=== PATIENT | female | born 1965 | race Caucasian/White ===

== ENCOUNTER 2021-11-18 05:29 | Observation (INO) | payer OTHER, SELFPAY ==
[2021-11-18] VITALS (15 sets, daily range): BP systolic 126–203; BP diastolic 80–109; PULSE 63–90; RESP 16–20; TEMP 36.1–37.3; O2SAT 95–100; BMI 25.7; BMI 26.3
[2021-11-18] MEDS: KETOROLAC 15 MG/ML inj IVP (05:52)
[2021-11-18 05:58] LABS: Basophils Absolute Auto 0.03 K/uL (0.00-0.30); Basophils Percent Auto 0.4 % (0.0-3.0); Eosinophils Absolute Auto 0.12 K/uL (0.00-0.50); Eosinophils Percent Auto 1.5 % (0.0-7.0); Hematocrit 42.3 % (33.0-51.0); Hemoglobin* 14.3 gm/dL (12.0-16.0); Immature Granulocytes Abs Auto 0.02 K/uL (0.00-0.30); Lactate* 2.7 mmol/L (0.5-1.9); Lymphocytes Absolute Auto 2.42 K/uL (0.90-2.90); Lymphocytes Percent Auto 30.1 % (20-44); Mean Corpuscular HGB Conc 34 gm/dL (32-36); Mean Corpuscular Hemoglobin 30 pg (26-34); Mean Corpuscular Volume 88 fL (80-100); Monocytes Percent Auto 6.7 % (0.0-11.0); Neutrophils Absolute Auto 4.91 K/uL (1.7-7.0); Neutrophils Percent Auto 61.1 % (42.0-72.0); Platelet Count* 275 K/uL (140-440); RDW Coefficient of Variation % 12.7 % (11.5-15.5); Red Blood Count 4.82 m/uL (4.00-5.20); White Blood Count* 8.04 K/uL (4.50-11.00)
[2021-11-18 06:00] LABS: Appearance Urine Clear (Clear); Bilirubin Urine Negative (Negative); Blood Urine Negative (Negative); Color Urine Yellow (Yellow); Glucose Urine Negative (Negative); Ketones Urine Negative (Negative); Leukocyte Esterase Urine Trace (Negative); Nitrite Urine Negative (Negative); Protein Urine Negative (Negative); Specific Gravity Urine 1.025 (1.000-1.030); Urobilinogen Urine 0.2 (0.2-1.0); pH Urine 7.5 (5.0-8.5)
[2021-11-18 06:01] LABS: Slide Review Reflex No
[2021-11-18 06:10] LABS: RBC Urine 0-2 (0-2); WBC Urine 0-2 (0-5)
[2021-11-18 06:12] LABS: Albumin* 4.4 g/dL (3.3-5.0); Chloride* 107 mmol/L (96-114)
--- NOTE | 2021-11-18 06:12 | ED_ITS ---
HPI - General Adult General Date Seen: 11/18/21 Chief complaint: Abdominal Pain Stated complaint: Stomach pain,possible gall stones Source: patient History of Present Illness HPI narrative: Patient is a 56-year-old woman who was awakened at 4:00 a.m. with severe right upper quadrant pain. It does not radiate. It is not associated with nausea or vomiting. She had pain like this back in February at which time she was evaluated regions. She had a right upper quadrant ultrasound which showed sludge or gallstones. She has not followed up since then. She had a noon rings for dinner last night. She has a history of kidney stones, feels this is different. She does not have flank pain or urinary symptoms. No diarrhea, black or bloody stools. Did not take medications at home. Related Data Previous Rx's Medication Instructions Recorded atorvastatin 20 mg tablet 20 mg PO .hs #90 tabs 10/08/21 escitalopram oxalate 20 mg tablet 20 mg PO DAILY #90 tabs 10/08/21 dextroamphetamine-amphetamine ER 40 mg PO QDAY #60 caps 10/26/21 20 mg 24hr capsule,extend release Allergies Allergy/AdvReac Type Severity Reaction Status Date / Time Penicillins Allergy Unknown Verified 10/30/21 10:43 Review of Systems Status of ROS: Reports: 10 or more systems reviewed and unremarkable except as noted in History and below [facility] Medical History Encounter for annual physical exam Family History Father Diabetes Heart disease Other Breast cancer Social History Smoking Status: Never smoker Do you use any of these nicotine containing products: None How often do you have a drink containing alcohol: never AUDIT-C Alcohol total score: 0 Non-prescribed substance use: denies use Exam Narrative: Exam Narrative: Vital signs as noted above. In general, an alert, nontoxic woman. Looks uncomfortable. Head: Normocephalic, atraumatic. Eyes: Pupils are equal reactive. Extraocular movements are full. Conjunctivae are normal. ENT: Mucous membranes are moist. Throat is normal. Neck: Supple without lymphadenopathy. Heart: Regular rate and rhythm. No murmur or rub. Lungs: Clear bilaterally. No increased work of breathing, crackles or wheezes. Abdomen: Nondistended. Right upper quadrant tenderness, positive Avendaño sign. Abdomen otherwise nontender. Extremities: Well perfused. No edema. No calf tenderness. Pulses intact. Neurologic: Patient is alert and oriented to person and place. Speech is fluent. Face is symmetric. Moves all extremities equally. Affect: Normal. Skin: Warm and dry. Well perfused. Const: Vital Signs, click to edit/add: Vital Signs - 24 hr 11/18/21 05:40 11/18/21 06:47 11/18/21 07:40 Temperature 96.9 F L 98.1 F 97.6 F Pulse Rate [Right Pulse Oximeter] 82 83 77 Respiratory Rate 20 16 16 Blood Pressure [Ri ght Upper Arm] 203/109 H 172/100 H 151/90 H Pulse Oximetry 100 99 96 Oxygen Delivery Me thod Room Air Room Air Room Air 11/18/21 08:00 11/18/21 08:30 11/18/21 09:00 Temperature Pulse Rate [Right Pulse Oximeter] 63 69 69 Respiratory Rate 16 16 16 Blood Pressure [Ri ght Upper Arm] 166/93 H 157/99 H 158/80 H Pulse Oximetry 96 96 98 Oxygen Delivery Me thod Room Air Room Air Room Air Course Course Hospital Course: An IV was placed. Will give Toradol and normal saline. Records from regions were reviewed. She had a rider quadrant ultrasound which did not show evidence of cholecystitis but she did have sludge and possibly small gallstones. Labs are unremarkable. Will check a CBC, metabolic panel, LFTs and lipase, lactate. UA. Depending on those, and how she is doing pain yanes, will determine whether we need to repeat an ultrasound. Do a bedside ultrasound here. Suspect biliary colic versus cholecystitis. Less likely pyelonephritis, kidney stone, appendicitis, bowel obstruction, diverticulitis, colitis. Labs are overall reassuring, white blood cell count is normal at 8.0. Hemoglobin is normal. Metabolic panel shows normal electrolytes, BUN is 12, creatinine is 0.7. Lactate is elevated at 2.7. LFTs are entirely normal. CRP is less than 0.5. Lipase is normal at 146. Urinalysis is entirely negative aside from trace leukocyte esterase, but 0-2 red cells and 0-2 white blood cells. I did look with the bedside ultrasound, I do think she has a couple of small gallstones, but I do not see evidence of significant wall thickening or pericholecystic fluid. At this time, she does not have any abdominal pain and not have any right upper quadrant tenderness nor a negative Avendaño sign. These symptoms seem to have entirely resolved, consistent most likely with biliary colic. However, her has noted that while here, her short-term memory is essentially absent. She has not been able to remember anything that this happened while here, and has been repeatedly asking him the same questions. She does not remember meeting me earlier, does not remember our conversation, does not remember what she had for dinner last night, does not remember that her dad is in the hospital. She does remember longer-term things like is able to tell me her date, she is oriented to where she is. Patient had an MRI of the brain which is read by Radiology as negative for acute findings. She does have artifact from dental work. Repeat evaluation shows she continues to have inability to form short term memory. Neurologic exam is otherwise nonfocal. I did discuss her case with Dr. Lebron, [facility]. He agrees with the diagnosis of transient global amnesia. I gave her an aspirin here. I think this will clear with time but I have recommended admission for observation meantime. Regarding her abdominal pain, I think this represented biliary colic. Have recommended outpatient surgery follow-up at her earliest convenience. Usual recommendations, avoid fatty food, return for severe persistent pain, fevers, etc.. Vital Signs Vital signs: Initial Vital Signs Temperature 96.9 F L 11/18/21 05:40 Temperature Source Temporal Artery Scan 11/18/21 05:40 Pulse Rate 82 11/18/21 05:40 Pulse Rhythm 11/18/21 05:40 Respiratory Rate 20 11/18/21 05:40 Blood Pressure 203/109 H 11/18/21 05:40 Blood Pressure Mean 140 11/18/21 05:40 Blood Pressure Position Supine 11/18/21 05:40 Pulse Oximetry 100 11/18/21 05:40 Oxygen Delivery Method 11/18/21 05:40 Vital Signs Temperature 96.9 F L 11/18/21 05:40 Pulse Rate 82 11/18/21 05:40 Respiratory Rate 20 11/18/21 05:40 Blood Pressure 203/109 H 11/18/21 05:40 Pulse Oximetry 100 11/18/21 05:40 Oxygen Delivery Method 11/18/21 05:40 Temperature 97.6 F 11/18/21 07:40 Pulse Rate 69 11/18/21 09:00 Respiratory Rate 16 11/18/21 09:00 Blood Pressure 158/80 H 11/18/21 09:00 Pulse Oximetry 98 11/18/21 09:00 Oxygen Delivery Method 11/18/21 09:00 Medical Decision Making Lab Data Labs: Lab Results 11/18/21 11/18/21 11/18/21 Range/Units 05:40 05:40 05:40 WBC 8.04 (4.50-11.00) K/uL RBC 4.82 (4.00-5.20) m/uL Hgb 14.3 (12.0-16.0) gm/dL Hct 42.3 (33.0-51.0) % MCV 88 (80-100) fL MCH 30 (26-34) pg MCHC 34 (32-36) gm/dL RDW Coeff of Giancarlo 12.7 (11.5-15.5) % Plt Count 275 (140-440) K/uL Neut % (Auto) 61.1 (42.0-72.0) % Lymph % (Auto) 30.1 (20-44) % Gibson % (Auto) 6.7 (0.0-11.0) % Eos % (Auto) 1.5 (0.0-7.0) % Baso % (Auto) 0.4 (0.0-3.0) % Neut # (Auto) 4.91 (1.7-7.0) K/uL Lymph # (Auto) 2.42 (0.90-2.90) K/uL Gibson # (Auto) 0.50 (0.00-0.90) K/UL Eos # (Auto) 0.12 (0.00-0.50) K/uL Baso # (Auto) 0.03 (0.00-0.30) K/uL Abs Immat Gran (auto) 0.02 (0.00-0.30) K/uL Sodium 141 (135-149) mmol/L Potassium 3.8 (3.6-5.1) mmol/L Chloride 107 (96-114) mmol/L Carbon Dioxide 23 (20-32) mmol/L BUN 12 (7-30) mg/dL Creatinine 0.7 (0.5-1.5) mg/dL Estimated Creat Clear 79.34 Estimated GFR 103 ml/min Glucose 133 H (60-115) mg/dL Lactate (0.5-1.9) mmol/L Calcium 9.5 (8.4-10.6) mg/dL Total Bilirubin 0.3 (0.1-1.5) mg/dL Direct Bilirubin 0.3 (0.0-0.5) mg/dL AST 26 (12-35) U/L ALT 26 (4-35) U/L Alkaline Phosphatase 117 (40-150) U/L C-Reactive Protein < 0.5 L (0.5-1.0) mg/dL Total Protein 7.6 (6.0-8.3) g/dL Albumin 4.4 (3.3-5.0) g/dL Lipase 146 (23-300) U/L Urine Color Yellow (Yellow) Urine Appearance Clear (Clear) Urine pH 7.5 (5.0-8.5) Ur Specific [place] 1.025 (1.000-1.030) Urine Protein Negative (Negative) Urine Glucose (UA) Negative (Negative) Urine Ketones Negative (Negative) Urine Blood Negative (Negative) Urine Nitrite Negative (Negative) Urine Bilirubin Negative (Negative) Urine Urobilinogen 0.2 (0.2-1.0) Ur Leukocyte Esterase Trace A (Negative) Urine RBC 0-2 (0-2) Urine WBC 0-2 (0-5) Ur Squamous Epith Cells None (None-Few) Urine Bacteria None (None) SARS-CoV-2 Ag (Rapid) 11/18/21 11/18/21 Range/Units 05:40 08:46 WBC (4.50-11.00) K/uL RBC (4.00-5.20) m/uL Hgb (12.0-16.0) gm/dL Hct (33.0-51.0) % MCV (80-100) fL MCH (26-34) pg MCHC (32-36) gm/dL RDW Coeff of Giancarlo (11.5-15.5) % Plt Count (140-440) K/uL Neut % (Auto) (42.0-72.0) % Lymph % (Auto) (20-44) % Gibson % (Auto) (0.0-11.0) % Eos % (Auto) (0.0-7.0) % Baso % (Auto) (0.0-3.0) % Neut # (Auto) (1.7-7.0) K/uL Lymph # (Auto) (0.90-2.90) K/uL Gibson # (Auto) (0.00-0.90) K/UL Eos # (Auto) (0.00-0.50) K/uL Baso # (Auto) (0.00-0.30) K/uL Abs Immat Gran (auto) (0.00-0.30) K/uL Sodium (135-149) mmol/L Potassium (3.6-5.1) mmol/L Chloride (96-114) mmol/L Carbon Dioxide (20-32) mmol/L BUN (7-30) mg/dL Creatinine (0.5-1.5) mg/dL Estimated Creat Clear Estimated GFR ml/min Glucose (60-115) mg/dL Lactate 2.7 H (0.5-1.9) mmol/L Calcium (8.4-10.6) mg/dL Total Bilirubin (0.1-1.5) mg/dL Direct Bilirubin (0.0-0.5) mg/dL AST (12-35) U/L ALT (4-35) U/L Alkaline Phosphatase (40-150) U/L C-Reactive Protein (0.5-1.0) mg/dL Total Protein (6.0-8.3) g/dL Albumin (3.3-5.0) g/dL Lipase (23-300) U/L Urine Color (Yellow) Urine Appearance (Clear) Urine pH (5.0-8.5) Ur Specific [place] (1.000-1.030) Urine Protein (Negative) Urine Glucose (UA) (Negative) Urine Ketones (Negative) Urine Blood (Negative) Urine Nitrite (Negative) Urine Bilirubin (Negative) Urine Urobilinogen (0.2-1.0) Ur Leukocyte Esterase (Negative) Urine RBC (0-2) Urine WBC (0-5) Ur Squamous Epith Cells (None-Few) Urine Bacteria (None) SARS-CoV-2 Ag (Rapid) Cancelled Discharge Plan Discharge Clinical Impression: TGA (transient global amnesia), Biliary colic Patient Disposition: Admitted As Inpatient Condition: Stable
[2021-11-18 06:13] LABS: Potassium* 3.8 mmol/L (3.6-5.1); Sodium* 141 mmol/L (135-149)
[2021-11-18 06:15] LABS: Creatinine* 0.7 mg/dL (0.5-1.5); Est. Creatinine Clearance* 79.34; Estimated Glomerular Filt Rate 103 ml/min
[2021-11-18 06:16] LABS: Alanine Aminotransferase* 26 U/L (4-35); Alkaline Phosphatase* 117 U/L (40-150); Aspartate Amino Transferase* 26 U/L (12-35); Bilirubin Direct* 0.3 mg/dL (0.0-0.5); Bilirubin Total* 0.3 mg/dL (0.1-1.5); Blood Urea Nitrogen* 12 mg/dL (7-30); Calcium* 9.5 mg/dL (8.4-10.6); Carbon Dioxide* 23 mmol/L (20-32); Glucose* 133 mg/dL (60-115); Lipase* 146 U/L (23-300); Total Protein* 7.6 g/dL (6.0-8.3)
[2021-11-18 06:19] LABS: C Reactive Protein* < 0.5 mg/dL (0.5-1.0)
--- NOTE | 2021-11-18 06:48 | CRLHL7_ITS ---
For Patients: As a result of the Century Cures Act, medical imaging exams and procedure reports are released immediately into your electronic medical record. You may view this report before your referring provider. If you have questions, please contact your health care provider. INDICATION: Confusion. TECHNIQUE: Multiplanar multisequence noncontrast MR images acquired. COMPARISON: MRI brain 02/10/2017. FINDINGS: Susceptibility artifact secondary to dental hardware limits evaluation, particularly the diffusion weighted sequence. The ventricles and sulci are within normal limits for patient age. No mass effect or midline shift. No parenchymal signal abnormalities within exam limitations. No areas of diffusion restriction identified to suggest acute infarction, though evaluation is limited, particularly of the anterior cerebral hemispheres and posterior fossa. No evidence for recent intracranial hemorrhage or pathologic extra-axial fluid collection. Left temporomandibular joint degenerative changes. The major arterial flow voids of the skullbase are grossly preserved. The globes are symmetric. The paranasal sinuses are well aerated, though partially obscured secondary to artifact. No significant mastoid effusion. IMPRESSION: Susceptibility artifact secondary to dental hardware limits evaluation. No intracranial abnormality is identified within exam limitations. Dictated by Gregor Hutton MD @ 11/18/2021 8:10:36 AM (Electronically Signed)
--- NOTE | 2021-11-18 08:47 | ED.NURSE ---
Heads up to house player
[2021-11-18] MEDS: ASPIRIN 81 MG TAB.CHEW 324 MG PO (09:04)
--- NOTE | 2021-11-18 09:29 | W.PC.EDHO ---
Primary Language: Preferred Language: Orientation Status: [X] Alert & Oriented [] Slight Confusion [] Known Dx Dementia Transfers By: Independant [] Assist of 1 [] Assist of 2 [] Lift Active Medications Discontinued Medications Generic Name Dose Route Start Last Admin Trade Name Dorina PRN Reason Stop Dose Admin Aspirin 324 mg 11/18/21 08:31 11/18/21 09:04 Aspirin 81 Mg Tab.Chew PO 11/18/21 08:32 324 mg ONCE ONE Administration Ketorolac Tromethamine 15 mg 11/18/21 05:48 11/18/21 05:52 Ketorolac 15 Mg/Ml Inj IVP 11/18/21 05:49 15 mg ONCE ONE Administration Description of Symptoms ED Triage Present Problem 0430 woke up with severe 10/10 RUQ into Rback pain Description , hx gall or kidney stones, pt cant remember which . denies vomiting, does have nausea. pt presents crying in bed. ED Triage Date of Onset of 11/18/21 Symptoms Female History Patient No Pain Pain Description [Right Upper Sharp Abdomen] Pain Intensity [Right Upper 10 Abdomen] Pain Intensity [Right Upper 10 Abdomen] Pain Intensity 1 Pain Intensity 1 Pain Intensity 5 Pain Intensity 10 Pain Scale Used [Right Upper Numeric (1 - 10) Abdomen] Pain Scale Used [Right Upper Numeric (1 - 10) Abdomen] Pain Scale Used Numeric (1 - 10) Pain Scale Used Numeric (1 - 10) Pain Scale Used Numeric (1 - 10) Pain Scale Used Numeric (1 - 10) Pain Scale Used Numeric (1 - 10) IV Insertion/Site Date of IV Line Insertion [ 11/18/21 Left Antecubital] Oxygen Administration Pulse Oximetry 98 Pulse Oximetry 96 Pulse Oximetry 96 Pulse Oximetry 96 Pulse Oximetry 99 Pulse Oximetry 100 Oxygen Delivery Method Room Air Oxygen Delivery Method Room Air Oxygen Delivery Method Room Air Oxygen Delivery Method Room Air Oxygen Delivery Method Room Air Oxygen Delivery Method Room Air
[2021-11-18 09:50] LABS: SARS PCR* Negative SARS-CoV-2 (Negative)
--- NOTE | 2021-11-18 10:21 | ED.NURSE ---
Report to LOUANN Barboza on MS.
--- NOTE | 2021-11-18 11:20 | PM.IMHP1 ---
Hospitalist- H&P: ANTONIETA History of Present Illness Time Seen by Provider: 11:15 Date Seen: 11/18/21 Chief complaint: Stomach pain,possible gall stones Narrative: Kylie Chatman is a 56 year old female who presented to the emergency room today with right upper quadrant pain and then suddenly developed anterograde amnesia. Due to amnesia, her gives me history. While I was talking with him, Kylie's mother came in the room and also helped to give history. Kylie's father is currently in the hospital with COVID, so her mother was here anyway. Kylie woke up at 4:30 a.m. with excruciating abdominal pain. Her tells me that he was rocking and very uncomfortable. After a while the pain went to her back. She did not have any nausea or vomiting with that. When she got to the emergency department the pain improved and is now gone altogether. Of note she had gone out with a friend to eat yesterday and had onion rings. This is more fatty of a meal then she has had in a while. She had a similar episode of abdominal pain on March 09. It resolved and she did not know that she needed follow-up with anyone. When she got to the emergency department she started asking questions like, ?why am I here,? ?what is going on?She asked these questions again and again despite receiving answers to these questions. She never lost her identity and is able to tell me who she is and what she does for work as well as other details of her life. She has no idea what happened today and also has lost memories back for about a week. She has never had any memory loss before. Her and mother tell me that she has been under quite a bit of stress with her dad in the hospital and has been talking with her mom on the phone about 3 times a day. On Tuesday she went for a very long walk with her dog. It was a very hot day that day. She came back complaining that her legs were sore and this went on from Tuesday into Tuesday. He also felt very fatigued after that walk. On Tuesday she was out in the [employer] when her came back and parked the truck near to where she was weeding. He went in the house and she later came in and was surprised to see him. Even though she was right there when he came back, and it should of been obvious to her that he was back, she came in wondering why his truck was there and was surprised to see him. Her thought this was unusual behavior for her. I went back to see the patient this afternoon around 4:00 p.m. and she started to have improvement in her memory. She was no longer frequently asking questions about about what was going on and why she was here. She was slightly more oriented and even starting to remember some of the events over the past week. Review of Systems Status of ROS: Reports: 10 or more systems reviewed and unremarkable except as noted in History and below [facility] Medical History (Updated 11/18/21 @ 17:37 by Christine Eubanks MD) Anxiety and depression Basal cell carcinoma of skin Difficulty sleeping Encounter for annual physical exam Excessive daytime sleepiness Hyperlipidemia Hypersomnolence Insomnia Iron deficiency Occipital neuralgia Otosclerosis Rash (11/2020) Vitamin D deficiency Family History (Updated 11/18/21 @ 11:33 by Christine Eubanks MD) Father Diabetes Heart disease Parkinsonism Mother Breast cancer Coronary artery disease Other High blood pressure Social History (Updated 11/18/21 @ 11:38 by Christine Eubanks MD) Narrative: No tob use. EtOH. One can limarita every night. No recreational drugs. Full code. 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 Highest level of school completed/degree received: Associate degree: occupational, technical, vocational program Smoking Status: Never smoker Do you use any of these nicotine containing products: None Second hand tobacco smoke exposure: Yes How often do you have a drink containing alcohol: 4 or more times a week Alcohol type details: 1 limarita a night How many standard drinks containing alcohol do you have on a typical day: 1 or 2 How often do you have six or more drinks on one occasion: Less than monthly AUDIT-C Alcohol total score: 5 Non-prescribed substance use: denies use Caffeine: Yes (1 pop a day) service: No Meds Home Medications and Allergies Home Medications Medication Instructions Recorded Confirmed Type atorvastatin 20 mg tablet 20 mg PO HS 11/18/21 11/18/21 History ibuprofen 200 mg capsule 400 mg PO Q4H PRN 11/18/21 11/18/21 History Allergies Allergy/AdvReac Type Severity Reaction Status Date / Time Penicillins Allergy Unknown Verified 11/18/21 10:59 Exam Narrative: Exam Narrative: General: No acute distress. Awake, alert, repeatedly asking questions about why she is here. Preserved identity. She is able to say her full name and birthday. HEENT: Normocephalic atraumatic, pupils equally round and reactive to light and accommodation. Oropharynx clear. Mucous membranes are moist. No cervical lymphadenopathy, thyromegaly or carotid bruits. No JVD. Cardiovascular: Regular rate and rhythm. No murmurs, gallops, or rubs. Chest: No increased work of breathing. Clear to auscultation bilaterally. No crackles or wheezes. Abdomen: Bowel sounds present. Soft, nondistended, nontender. No hepatosplenomegaly or masses. Extremities: No edema, no cyanosis or clubbing. Skin: No jaundice, no pallor, no rashes. Neuro: Other than anterograde amnesia, are no focal deficits. Romberg is negative. Gait is within normal limits. Cranial nerves 2-12 are intact. Extraocular movements are full. No nystagmus. No facial asymmetry. Tongue is midline. Peripheral vision and vision are grossly intact. Strength is 5/5 in all 4 extremities. Light touch sensation is intact in face body and extremities. Coordination is intact in upper and lower extremities. Const: Vital Signs, click to edit/add: Vital Signs - 24 hr 11/18/21 05:40 11/18/21 06:47 11/18/21 07:40 Temperature 96.9 F L 98.1 F 97.6 F Pulse Rate [Left P ulse Oximeter] Pulse Rate [Right Pulse Oximeter] 82 83 77 Respiratory Rate 20 16 16 Blood Pressure [Ri ght Arm] Blood Pressure [Ri ght Upper Arm] 203/109 H 172/100 H 151/90 H Pulse Oximetry 100 99 96 Oxygen Delivery Me thod Room Air Room Air Room Air 11/18/21 08:00 11/18/21 08:30 11/18/21 09:00 Temperature Pulse Rate [Left P ulse Oximeter] Pulse Rate [Right Pulse Oximeter] 63 69 69 Respiratory Rate 16 16 16 Blood Pressure [Ri ght Arm] Blood Pressure [Ri ght Upper Arm] 166/93 H 157/99 H 158/80 H Pulse Oximetry 96 96 98 Oxygen Delivery Me thod Room Air Room Air Room Air 11/18/21 09:30 11/18/21 10:34 11/18/21 10:00 Temperature 98.6 F Pulse Rate [Left P ulse Oximeter] 82 Pulse Rate [Right Pulse Oximeter] 67 70 Respiratory Rate 16 16 Blood Pressure [Ri ght Arm] 159/101 H Blood Pressure [Ri ght Upper Arm] 169/102 H 159/99 H Pulse Oximetry 98 98 Oxygen Delivery Me thod Room Air Room Air Room Air Hospitalist - H&P: Result Labs Labs: Short CBC 11/18/21 Range/Units 05:40 WBC 8.04 (4.50-11.00) K/uL Hgb 14.3 (12.0-16.0) gm/dL Hct 42.3 (33.0-51.0) % Plt Count 275 (140-440) K/uL BMP 11/18/21 05:40 Sodium 141 Potassium 3.8 Chloride 107 Carbon Dioxide 23 BUN 12 Creatinine 0.7 Glucose 133 H Calcium 9.5 Liver Function 11/18/21 Range/Units 05:40 Total Bilirubin 0.3 (0.1-1.5) mg/dL Direct Bilirubin 0.3 (0.0-0.5) mg/dL AST 26 (12-35) U/L ALT 26 (4-35) U/L Alkaline Phosphatase 117 (40-150) U/L Albumin 4.4 (3.3-5.0) g/dL Urine 11/18/21 Range/Units 05:40 Urine Color Yellow (Yellow) Urine Appearance Clear (Clear) Urine pH 7.5 (5.0-8.5) Ur Specific [place] 1.025 (1.000-1.030) Urine Protein Negative (Negative) Urine Glucose (UA) Negative (Negative) EKG: Normal sinus rhythm, heart rate 75 beats per minute, nonspecific ST abnormality. Ordering Physician: Anastacia Montes MD Date of Service: 11/18/21 Procedure(s): MR head/brain wo con Accession Number(s): [id number] cc: Anastacia Montes MD; Mellisa Lima PA-C~ For Patients: As a result of the Cures Act, medical imaging exams and procedure reports are released immediately into your electronic medical record. You may view this report before your referring provider. If you have questions, please contact your health care provider. INDICATION: Confusion. TECHNIQUE: Multiplanar multisequence noncontrast MR images acquired. COMPARISON: MRI brain 02/10/2017. FINDINGS: Susceptibility artifact secondary to dental hardware limits evaluation, particularly the diffusion weighted sequence. The ventricles and sulci are within normal limits for patient age. No mass effect or midline shift. No parenchymal signal abnormalities within exam limitations. No areas of diffusion restriction identified to suggest acute infarction, though evaluation is limited, particularly of the anterior cerebral hemispheres and posterior fossa. No evidence for recent intracranial hemorrhage or pathologic extra-axial fluid collection. Left temporomandibular joint degenerative changes. The major arterial flow voids of the skullbase are grossly preserved. The globes are symmetric. The paranasal sinuses are well aerated, though partially obscured secondary to artifact. No significant mastoid effusion. IMPRESSION: Susceptibility artifact secondary to dental hardware limits evaluation. No intracranial abnormality is identified within exam limitations. Dictated by Gregor Hutton MD @ 11/18/2021 8:10:36 AM (Electronically Signed) Assessment and Plan Assessment and plan (1) TGA (transient global amnesia): Status: Acute (2) Biliary colic: Status: Acute Plan Biliary colic has resolved. This was her 2nd symptomatic episode. Follow-up with general surgery as an outpatient to discuss possibility of elective laparoscopic cholecystectomy. No abnormal labs or abnormal MRI findings or other concerning I am findings suggest this anterograde amnesia is transitory global amnesia, which carries a good prognosis and will likely resolve within 24 hours. Will admit for observation on telemetry. Patient does drink daily at home, 1 alcoholic drink per day. Will also give a dose of thiamine IV.
[2021-11-18] MEDS: 0.9 % SODIUM CHLORIDE 250 ml IV (12:57)
[2021-11-18] MEDS: THIAMINE 500 MG in 0.9 % SODIUM CHLORIDE 100 ml 100 ML 105 MG IVPB (12:59)
[2021-11-18 13:14] LABS: Barbiturate Screen Urine Negative (Negative); Benzodiazepines Screen Urine Negative (Negative); Cannabinoid Screen Urine Negative (Negative); Cocaine Screen Urine Negative (Negative); Methadone Screen Urine Negative (Negative); Methamphetamines Screen Urine Negative (Negative); Opiate Screen Urine Negative (Negative); Oxycodone Screen Urine Negative (Negative); Phencyclidine Screen Urine Negative (Negative); Tricyclic Antidepressant Urine Negative (Negative)
[2021-11-18 13:16] LABS: Amphetamine Screen Urine POSITIVE (Negative)
--- NOTE | 2021-11-18 14:41 | PC.NURSE ---
End of Shift: Patient pleasant and cooperative arrived to the floor by wheelchair at about 1045. Patient alert but not oriented without looking at board. Patient lacks recent and some remote memory, patient did take awhile to decide what she wanted for lunch. Patient could not comprehend that she could choose whatever she wanted off the menu, and kept asking how to order. Patient ambulates independently, and denies abdominal pain. Patient tolerating regular diet and has urinated once.
--- NOTE | 2021-11-18 18:56 | PC.NURSE ---
End of Shift, Pt pleasant , no pain. Pt alert x self. she is up ab yumiko. she is using the call light, gait is steady and even. she is eating, drinking and voiding. she still does not remember the events of the day
[2021-11-18] MEDS: SODIUM CHLORIDE 0.9 % (FLUSH) 10 ML SYRINGE 5 ML IVF (22:17)
[2021-11-19] VITALS: BP 125/80; PULSE 75; RESP 16; TEMP 36.8; O2SAT 94
[2021-11-19 04:00] VITALS: BP 144/89; PULSE 69; RESP 16; TEMP 36.7; O2SAT 97
--- NOTE | 2021-11-19 06:55 | PC.NURSE ---
[id number]: Patient pleasant and cooperative. Denies pain. A&Ox3 with no confusion. Independent in room. Drinking and voiding.
[2021-11-19 07:27] VITALS: BP 143/91; PULSE 67; PULSE 69; RESP 16; TEMP 36.7; O2SAT 97
[2021-11-19 07:30] VITALS: PULSE 69; RESP 16
[2021-11-19] MEDS: SODIUM CHLORIDE 0.9 % (FLUSH) 10 ML SYRINGE 5 ML IVF (08:51)
--- NOTE | 2021-11-19 09:55 | PM.DS1 ---
DS: Providers Provider Date Seen: 11/19/21 Date of admission: 11/18/21 09:24 Primary care physician: Mellisa Lima PA-C Admitting Clinician: Christine Eubanks MD Attending Physician on discharge: Genevieve Mcdermott MD Date of Discharge: 11/19/21 DS: Diagnosis Discharge Diagnosis (1) Biliary colic: Status: Acute (2) TGA (transient global amnesia): Status: Acute DS: Summary Hospital Course Hospital Course: 56-year-old female, presented to the hospital for biliary colic and while in the emergency room, had an abrupt change in mental status. MRI of brain was negative, and patient improved significantly over the course of the day, suggesting transient global amnesia as the source of symptoms. She is accompanied by her sister on hospital day 1, and feels back to baseline (tolerating p.o. intake), comfortable discharging home with close PCP follow-up. She will discuss referral to general surgery with her PCP for elective cholecystectomy. Status at Discharge Functional status at discharge: independent ambulation Overall status at discharge: patient is back to baseline Time Spent with Patient Time attestation: Total time spent providing and/or coordinating discharge services: Time spent: Less than 30 minutes Exam Narrative: Exam Narrative: GEN: Alert and oriented, sitting comfortably in bed and answering questions appropriately HEENT: Normal external ears, EOMIs bilaterally CV: RRR, No concerning murmurs, rubs, or gallops, no carotid bruits R: LCTA bilaterally without concerning wheezing, rales, or rhonchi Ext: wwp, no concerning edema Skin: No concerning skin lesions or rashes on exposed skin Neuro: Nonfocal, no dysmetria on [id number] testing, no pronator drift Psych: Appropriate Const: Vital Signs, click to edit/add: Vital Signs - 24 hr 11/18/21 10:34 11/18/21 10:00 11/18/21 12:02 Temperature 98.6 F Pulse Rate Pulse Rate [Left P ulse Oximeter] 82 Pulse Rate [Right Pulse Oximeter] 70 Respiratory Rate 16 Blood Pressure [Ri ght Arm] 159/101 H Blood Pressure [Ri ght Upper Arm] 159/99 H Pulse Oximetry 98 Oxygen Delivery Me thod Room Air Room Air Room Air 11/18/21 12:24 11/18/21 16:33 11/18/21 16:35 Temperature Pulse Rate 77 84 Pulse Rate [Left P ulse Oximeter] 90 Pulse Rate [Right Pulse Oximeter] Respiratory Rate 18 Blood Pressure [Ri ght Arm] Blood Pressure [Ri ght Upper Arm] Pulse Oximetry Oxygen Delivery Me thod 11/18/21 16:00 11/18/21 20:00 11/19/21 00:00 Temperature 98.7 F 99.1 F 98.3 F Pulse Rate Pulse Rate [Left P ulse Oximeter] 90 88 75 Pulse Rate [Right Pulse Oximeter] Respiratory Rate 18 16 16 Blood Pressure [Ri ght Arm] 126/83 142/86 H 125/80 Blood Pressure [Ri ght Upper Arm] Pulse Oximetry 95 95 94 Oxygen Delivery Me thod Room Air Room Air Room Air 11/18/21 23:00 11/19/21 04:00 11/19/21 07:27 Temperature 98.1 F Pulse Rate 73 67 Pulse Rate [Left P ulse Oximeter] 69 Pulse Rate [Right Pulse Oximeter] Respiratory Rate 16 Blood Pressure [Ri ght Arm] 144/89 H Blood Pressure [Ri ght Upper Arm] Pulse Oximetry 97 Oxygen Delivery Me thod Room Air 11/19/21 07:27 11/19/21 07:30 Temperature 98.1 F Pulse Rate Pulse Rate [Left P ulse Oximeter] 69 69 Pulse Rate [Right Pulse Oximeter] Respiratory Rate 16 16 Blood Pressure [Ri ght Arm] 143/91 H Blood Pressure [Ri ght Upper Arm] Pulse Oximetry 97 Oxygen Delivery Me thod Room Air DS: Data Data Completed and Pending Completed studies during hospitalization: MRI of brain Labs on day of discharge: Labs from last 24 hours 11/18/21 05:40 Urine Opiates Screen Negative Ur Oxycodone Screen Negative Urine Methadone Screen Negative Ur Propoxyphene Screen Negative Ur Barbiturates Screen Negative U Tricyclic Antidepress Negative Ur Phencyclidine Scrn Negative Ur Amphetamines Screen POSITIVE A* U Methamphetamines Scrn Negative U Benzodiazepines Scrn Negative Urine Cocaine Screen Negative U Marijuana (THC) Screen Negative Ur Drug Screen Comment See Note Discharge Plan Discharge Disposition: Home, Self-Care Date of Admission: 11/18/21 09:24 Attending Provider on Discharge: Genevieve Mcdermott Primary Care Provider: Mellisa Lima Condition: Stable Anticipated Discharge Date/Time: 11/19/21 09:52 Discharge Medications: Continued ibuprofen 200 mg capsule 400 mg PO Q4H PRN atorvastatin 20 mg tablet 20 mg PO HS escitalopram oxalate 20 mg tablet 20 mg PO DAILY Qty: 90 0RF dextroamphetamine-amphetamine 20 mg capsule,extended release 24hr 40 mg PO QDAY Qty: 60 0RF Rx Instructions: Take 2 capsules daily Discharge Orders: Discharge Order (Routine); Ordered 11/19/21 Ordered By: Genevieve Mcdermott Patient Education: Biliary Colic (GEN) Activity Restrictions/Additional Instructions: See your PCP in 1-2 weeks to discuss referral to General Surgery for your gallbladder. Activity Level: Activity as Tolerated Discharge Diet: Low Fat/Low Cholesterol Diet Detail: Low fat for gallbladder disease Follow Up Appointments: Mellisa Lima PA-C [Primary Care Provider] - Forms: MyHealth Info Instructions
--- NOTE | 2021-11-19 11:32 | PC.NURSE ---
Discharge. pt has been very pleasant. No pain.? A&Ox3 with no confusion.? she still does not remember the events of the day ? Independent in room.? she is eating, Drinking and voiding with no problems. .she is using the call light, ? gait is steady and even.? went over discharge packet with pt and son. went over meds, appointment, education and instructions. no belongings list found. pt packed up all belongings and paperwork., she walked out with her son.
== END 2021-11-19 10:50 | disposition home or self-care (01) ==
LOC: ED 09:12 → MEDSURG 09:25
PROVIDERS: Admitting Provider Family Medicine; Emergency Provider Emergency Medicine; PCP Physician Assistant Medical; Visit Provider Family Medicine
DX: K80.50 Calculus of bile duct without cholangitis or cholecystitis without obstruction (principal); G45.4 Transient global amnesia; E78.5 Hyperlipidemia, unspecified
CPT/HCPCS: 36415; 70551; 80048; 80076; 80306; 81001; 83605; 83690; 85025; 86140; 87426; 87635; 93005; 96374; 96375; 99284; 99285; G0378; A9270; J1885; J3411; J7050

== ENCOUNTER 2023-04-20 08:02 | Outpatient (CLI) | payer OTHER, SELFPAY ==
--- OUTSIDE RECORDS SUMMARY | 2023-04-20 08:06 | XMS_ITS | Referral Summary ---
Author Name Unknown Organization [facility] Address [address] [place] [id number] Care Team Providers Care Artificial Inseminator Name Role Phone [facility], [facility] Primary Care Provider Allergies Active Allergy Reactions Criticality Noted Date Comments Penicillins 02/01/2003 Medications Medication Sig Dispensed Refills Start Date End Date Status azithromycin (ZITHROMAX) 250 MG tabletIndications:Acu te maxillary sinusitis Two tablets first day, then one tablet daily for four days. 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 Provider to review and confirm.) Immunizations Name Administration Dates Next Due TD,PF 7+ (Tenivac) 08/23/1999 Social History Tobacco Use Types Packs/Day Years Used Date Smoking Tobacco: Never Smokeless Tobacco: Never Alcohol Use Standard Drinks/Week Comments Yes 0 (1 standard drink = 0.6 oz pur e alcohol) rare Adolescent Education Answer Date Record ed Getting School Help Needed Not on file 12/26 Sex and Gender Information Value Date Recorded Sex Assigned at Not on file Gender Identity Not on file Sexual Orientation Not on file Last Filed Vital Signs Vital Sign Reading Time Taken Comments Blood Pressure 130/93 03/09/2021 6:28 AM HEAD OF ART Pulse 74 03/09/2021 6:28 AM HEAD OF ART Temperature 36.1 ??C (96.9 ??F) 03/09/2021 3:18 AM CS T Respiratory Rate 16 03/09/2021 3:18 AM HEAD OF ART Oxygen Saturation 96% 03/09/2021 6:29 AM HEAD OF ART Inhaled Oxygen Concentration - - Weight 58.1 kg (128 lb) 07/02/2013 9:46 AM CDT Height 161.3 cm (5' 3.5) 07/02/2013 9:46 AM CDT Body Mass Index 22.32 07/02/2013 9:46 AM CDT Plan of Treatment Not on file Care Teams Artificial Inseminator Relationship Specialty Start Date End Date Clinic, [address] [address] PCP - General 03/09/21
--- OUTSIDE RECORDS SUMMARY | 2023-04-20 08:06 | XMS_ITS ---
Author Name Unknown Organization [facility] Address [address] [place] [address] Care Team Providers Care Dumb Waiter Operator Name Role Phone Unavailable Unavailable Unavailable Surgery Details Not on file Complications Check Surgery Details section. Procedure Estimated Blood Loss Check Surgery Details section. Procedure Findings Check Surgery Details section. Procedure Specimens Taken Check Surgery Details section.
--- OUTSIDE RECORDS SUMMARY | 2023-04-20 08:06 | XMS_ITS | Referral Summary ---
Author Name Unknown Organization [facility] Address [address] [place] [address] Care Team Providers Care Petroleum Supply Specialist Name Role Phone Unavailable Primary Care Provider Unavailabl e Source Comments Patient records contain information from all sites at [facility]. For routine questions regarding patient records, call [phone] during business hours, M-F 8:00 AM - 5:00 PM Central Time. Record requests for emergency care only can be directed to [phone] at any time.[facility] Encounters Date Type Department Care Team Description 04/15/2023 8:30 AM SENIOR PRODUCER Diagnostic Department of Otorhinolaryngology in [place], [place] [address] [place] [phone] Wendy Reynolds Au.D., C.C.C.-A Loss Hearing Sensorineural Bilateral (Primary Dx) 03/31/2023 1:00 PM SENIOR PRODUCER Diagnostic Department of Otorhinolaryngology in [place], [place] [address] [place] [phone] Wendy Reynolds Au.D., C.C.C.-A Conductive Hearing Loss Unilateral Right Ear With Restricted Hearing On The Contralateral side (Primary Dx) 03/31/2023 10:00 AM SENIOR PRODUCER Diagnostic Department of Otorhinolaryngology in [place], [place] [address] [place] [phone] Cheryl Castellanos Au.D. Conductive Hearing Loss Unilateral Right Ear With Restricted Hearing On The Contralateral side (Primary Dx) from Last 3 Months Allergies Active Allergy Reactions Criticality Noted Date Comments Penicillins Rash,Hives (Reselect Reaction) 07/15/2016 pt states unknown/ childhood allergy Medications Medication Sig Dispensed Refills Start Date End Date Status amphetamine-dextroam phetamine (ADDERALL XR) 20 mg 24 hr capsule Take 40 mg by mouth. 0 04/28/2020 Active sertraline (ZOLOFT) 50 mg tablet Take 50 mg by mouth daily. 0 08/14/2020 Active oxyCODONE (Roxicodone) 5 mg immediate release tabletIndications:Ac marquita Pain Exception Take 1 tablet (5 mg total) by mouth every 4 (four) hours as needed for moderate pain or score 4-6 of 10 Indication: Acute Pain Exception. 5 tablet 0 09/10/2020 Active ibuprofen (ADVIL,MOTRIN) 200 mg tablet Take 3 tablets (600 mg total) by mouth every 6 (six) hours as needed for pain. 0 09/10/2020 Active sennosides-docusate sodium (Senna with Docusate Sodium) 8.6-50 mg per tablet Take 1 tablet by mouth 2 (two) times a day. Take until no longer using narcotic and bowel movements are normal. 0 09/10/2020 Active acetaminophen (TYLENOL) 500 mg capsule Take 2 capsules (1,000 mg total) by mouth every 6 (six) hours as needed for pain. 0 09/10/2020 Active ofloxacin (FLOXIN) 0.3 % otic solution Administer 4 drops into the right ear 2 (two) times a day. For only the week leading up to your follow up appointment. 5 mL 0 09/10/2020 Active Active Problems Problem Noted Date Diagnosed Date Otosclerosis Bilateral 07/18/2020 Overview: Added automatically from request for surgery [id number] Social History Tobacco Use Types Packs/Day Years Used Date Smoking Tobacco: Never Smokeless Tobacco: Never Nutrition Answer Date Recorded Nutrition: EVOO Fat Source Unknown 06/20 Nutrition: Servings of Fruits/Vegetables per Day Not on file 06/20/2020 Dental Answer Date Recorded Dental: Regular Dentist Unknown 06/21/19 21 Sex and Gender Information Value Date Recorded Sex Assigned at Not on file Gender Identity Not on file Sexual Orientation Not on file Last Filed Vital Signs Vital Sign Reading Time Taken Comments Blood Pressure 139/127 09/10/2020 11:30 AM CDT Pulse 67 09/10/2020 12:00 PM CDT Temperature 36.5 ??C (97.7 ??F) 09/10/2020 12:00 PM C DT Respiratory Rate 12 09/10/2020 11:30 AM CDT Oxygen Saturation 99% 09/10/2020 12:00 PM CDT Inhaled Oxygen Concentration - - Weight 69.1 kg (152 lb 5.4 oz) 09/10/2020 8:39 A M CDT Height 161 cm (5' 3.39) 09/10/2020 8:39 AM CDT Body Mass Index 26.66 09/10/2020 8:39 AM CDT Plan of Treatment Upcoming Encounters Date Type Department Care Team (Late st Contact Info) Description 05/06/2023 9:30 AM SENIOR PRODUCER Diagnostic Department of Otorhinolaryngology in [place], [place] [address] [place] [phone] Wendy Reynolds Au.D., C.C.C.-A [address] [place] [phone] Medical Devices Implanted Type Area Autism Teacher Device Identifier Shelf Expiration Date Model / Serial / Lot Stapes Piston Eclipse 0.5mm X 4.25mm - [employer] [id number] Implanted:Qty: 1 on 07/30/2016 Ear Implant Other/Legacy - See Implant Description [facility] Description:Device Manufactu rer - Prudence Vindicia. Body Location - Other. Left. Device Status Text - AUD [id number]. Abtmnt Hd Ecl Ossclr 0.5x4.0 - [id number] Implanted:Qty: 1 on 09/10/2020 by Victorino Scott M.D. at [facility] Ear Implant [employer] 05/25/2022 [id number] / / [id number] Procedures Procedure Name Priority Date/Time Associated Diagnosis Comments AUDIOLOGY EVALUATION 03/31/2023 12:00 AM SENIOR PRODUCER from Last 3 Months Results * AUDIOLOGY EVALUATION (03/31/2023 12:00 AM SENIOR PRODUCER) 03/31/2023 Cheryl Mir AUDIOLOGY SERVIC ES ORDERABLES from Last 3 Months
--- OUTSIDE RECORDS SUMMARY | 2023-04-20 08:06 | XMS_ITS | Encounter Summary ---
Author Name Unknown Organization [facility] Address [address] [place] [address] Care Team Providers Care Water Project Engineer Name Role Phone Unavailable Primary Care Provider Unavailabl e Reason for Visit * Appointment Request (Routine) - Closed Specialty Diagnoses / Procedures Referred By Contac t Referred To Contact Otorhinolaryngology Diagnoses Adjustment Hearing Aid Referral ID Status Reason Start Date Expiration Date Visits Re quested Visits Authorized [id number] Closed 01/04/2023 01/04/2024 2 2 Encounter Details Date Type Department Care Team (Latest Contact Info) Description 03/31/2023 1:00 PM SUBASSEMBLIES WIRER Diagnostic Department of Otorhinolaryngology in [place], [place] [address] [place] [phone] Wendy Reynolds Au.D., C.C.C.-A [address] [place] [phone] Conductive Hearing Loss Unilateral Right Ear With Restricted Hearing On The Contralateral side (Primary Dx) Social History Tobacco Use Types Packs/Day Years [...] on file Sexual Orientation Not on file documented as of this encounter Consult Notes * Wendy Reynolds Au.D., C.C.C.-A - 03/31/2023 1:00 PM CST SUBJECTIVE REFERRAL: self CHIEF COMPLAINT/REASON FOR VISIT Hearing aid consultation, accompanied by HISTORY Kylie Rodrigesceciliajesse FLORENTIN is a 57 y.o. 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 She had an updated audiogram today (03/31/2023). Her medical history is significant for Otosclerosis. Dr. Scott performed a stapedotomy on the right side 09/10/2020. She reports difficulties hearing soft and distant speech. She is an iPhone user. OBJECTIVE The unaided portion of the Abbreviated Profile of Hearing Aid Benefit (APHAB) questionnaire showed perceived difficulty hearing as follows: Ease of Communication 42% problem, Reverberation 71% problem, Background noise 58% problem, Aversiveness of sound 50% problem. ASSESSMENT/PLAN The patient???s communication needs and lifestyle were assessed. Realistic expectations of amplification were discussed. Hearing aid styles, levels of technology, user control options, and the recommended procedure for follow-up care were explained. Based on the patient???s hearing and communication needs, the following recommendation was provided: Left Right Production Miner ReSound ReSound Model Nexia 760S Nexia 760S Style RITE (kgvmvief-nq-zko-ear) RITE (yazfglrs-mp-ghc-ear) Accessory intermodal truck driver Fitting was scheduled. #1 Conductive Hearing Loss Unilateral Right Ear With Restricted Hearing On The Contralateral side SSEMBLIES WIRER documented in this encounter Plan of Treatment Upcoming Encounters Date Type Department Care Team (Late st Contact Info) Description 05/06/2023 9:30 AM SUBASSEMBLIES WIRER Diagnostic Department of Otorhinolaryngology in [place], [place] [address] [place] [address] Wendy Reynolds Au.D., C.C.C.-A [address] [place] [phone] documented as of this encounter Visit Diagnoses Diagnosis Conductive Hearing Loss Unilateral Right Ear With Restricted Hearing On The Contralateral side- Primary documented in this encounter
--- OUTSIDE RECORDS SUMMARY | 2023-04-20 08:06 | XMS_ITS | Encounter Summary ---
Author Name Unknown Organization [facility] Address [address] [place] [address] Care Team Providers Care Engineering Documentation Specialist Name Role Phone Unavailable Primary Care Provider Unavailabl e Reason for Visit * Appointment Request (Routine) - Closed Specialty Diagnoses / Procedures Referred By Cesilia moore Referred To Contact Otorhinolaryngology Diagnoses Adjustment Hearing Aid Referral ID Status Reason Start Date Expiration Date Visits Re quested Visits Authorized [id number] Closed 01/04/2023 01/04/2024 2 2 Encounter Details Date Type Department Care Team (Latest Contact Info) Description 03/31/2023 10:00 AM SENIOR SQL SERVER DATABASE DEVELOPER Diagnostic Department of Otorhinolaryngology in [place], [place] [address] [place] [address] Cheryl Castellanos Au.D. [address] [place] [phone] Conductive Hearing Loss Unilateral Right Ear With [...] on file documented as of this encounter Procedure Notes * Cheryl Castellanos Au.D. - 03/31/2023 9:59 AM CST SUBJECTIVE CHIEF COMPLAINT / REASON FOR VISIT ?? s/p left stapedotomy and prosthesis on July 30, 2016 ?? s/p right stapedotomy August [address] Scott HISTORY OF PRESENT COMPLAINT Ms. Kylie Chatman is a 57 year old patient who presents for audiological evaluation prior to hearing aid evaluation. Today, Ms. Chatman reports she was recently treated with antibiotics and nasal spray for fluid in her ears. She feels she has mostly recovered. In general, she finds she is struggling more to hear well, especially in groups and is ready to pursue amplification. She denies tinnitus, aural pressure/fullness, and vertigo. OBJECTIVE See Audiological Evaluation Form ASSESSMENT/PLAN ?? Right Ear: mild to moderate hearing loss 250 Hz to 8 kHz that is conductive in the low frequencies. ?? Left Ear: slight to moderate sensorineural hearing loss from 1.5 kHz to 8 kHz. ?? Word recognition ability was assessed using recorded isophoneme stimuli and resulted in scores of 100% in each ear. ?? Using recorded speech, uncomfortable loudness levels (UCLs) were 105 dB HL in the right ear and 100 dB HL in the left ear. ?? Tympanometry indicates normal middle ear pressure and compliance in the left ear. The right ear reveals Eustachian Tube dysfunction. ?? Compared to thresholds obtained before her 2020 surgery, the left ear is stable and the right ear shows significant improvement across the frequency range. CARE PLAN ?? Continue to scheduled appointment in the [facility] Hearing Aid Program. ?? Consider referral for Otolaryngology evaluation regarding: current low frequency conductive hearing loss in the right ear. ?? Re-evaluate hearing next year, sooner if change in hearing, tinnitus and/or balance status suspected. OR SQL SERVER DATABASE DEVELOPER documented in this encounter Plan of Treatment Upcoming Encounters Date Type Department Care Team (Late st Contact Info) Description 05/06/2023 9:30 AM SENIOR SQL SERVER DATABASE DEVELOPER Diagnostic Department of Otorhinolaryngology in [place], [place] [address] [place] [address] Wendy Reynolds Au.D., C.C.C.-A [address] [place] [address] documented as of this encounter Procedures Procedure Name Priority Date/Time Associated Diagnosis Comments AUDIOLOGY EVALUATION 03/31/2023 12:00 AM SENIOR SQL SERVER DATABASE DEVELOPER documented in this encounter Results * AUDIOLOGY EVALUATION (03/31/2023 12:00 AM SENIOR SQL SERVER DATABASE DEVELOPER) 03/31/2023 Cheryl Mir AUDIOLOGY SERVIC ES ORDERABLES documented in this encounter Visit Diagnoses Diagnosis Conductive Hearing Loss Unilateral Right Ear With Restricted Hearing On The Contralateral side- Primary documented in this encounter
--- OUTSIDE RECORDS SUMMARY | 2023-04-20 08:06 | XMS_ITS | Clinical Summary ---
Author Name Unknown Organization [facility] Address [address] [place] [address] Care Team Providers Care Solo Truck Driver Name Role Phone Unavailable Primary Care Provider Unavailabl e Source Comments Patient records contain information from all sites at [facility]. For routine questions regarding patient records, call [phone] during business hours, M-F 8:00 AM - 5:00 PM Central Time. Record requests for emergency care only can be directed to [phone] at any time.[facility] Allergies Active Allergy Reactions Criticality Noted Date [...] Overview: Added automatically from request for surgery [id number] Encounters Date Type Department Care Team Description 04/15/2023 8:30 AM WATERSHED TENDER Diagnostic Department of Otorhinolaryngology in [address] [address] Wendy Reynolds Au.D., C.C.C.-A Loss Hearing Sensorineural Bilateral (Primary Dx) 03/31/2023 1:00 PM WATERSHED TENDER Diagnostic Department of Otorhinolaryngology in [address] [address] Wendy Reynolds Au.D., C.C.C.-A Conductive Hearing Loss Unilateral Right Ear With Restricted Hearing On The Contralateral side (Primary Dx) 03/31/2023 10:00 AM WATERSHED TENDER Diagnostic Department of Otorhinolaryngology in [address] [address] Cheryl Castellanos Au.D. Conductive Hearing Loss Unilateral Right Ear With Restricted Hearing On The Contralateral side (Primary Dx) from Last 3 Months Social History Tobacco Use Types Packs/Day Years [...] st Contact Info) Description 05/06/2023 9:30 AM WATERSHED TENDER Diagnostic Department of Otorhinolaryngology in [place], [place] [address] [place] [address] Wendy Reynolds Au.D., C.C.C.-A [address] [place] [address] Health Maintenance Due Date Last Done Comments CT Colonography 1967 Cervical Cancer Screening 1967 Cologuard 1967 Colonoscopy 1967 Colorectal Cancer Screening 1967 FIT 1967 HIV Screening 1967 Hepatitis B Vaccines (1 of 3 - 3-dose series) 1967 Hepatitis C Screening 1967 Lipid (Cholesterol) Screening 1967 Mammogram 1967 DTaP,Tdap,and Td Vaccines (1 - Tdap) 08/24/1999 08/23/1999 Zoster Vaccines (1 of 2) 10/02/2017 COVID-19 Vaccine (3 - 2022-2 4 season) 2022 06/27/2020, 06/06/2020 Influenza Vaccine (#1) 2022 Depression Screening (Annual PHQ-2) 03/28/2023 Fasting Glucose for Diabetes Screening 03/09/2024 03/09/2021 Pneumococcal vaccine (0-64 years) Aged Out No longer eligible b ased on patient's age to complete this topic Medical Devices Implanted Type Area Communications Field Technician Device Identifier Shelf Expiration Date Model / Serial / Lot Stapes Piston Eclipse 0.5mm X 4.25mm - [id number] Implanted:Qty: 1 on 07/30/2016 Ear Implant Other/Legacy - See Implant Description [employer] Description:Device Manufactu rer - [employer]. Body Location - Other. Left. Device Status Text - AUD [id number]. Abtmnt Hd Ecl Ossclr 0.5x4.0 - [id number] Implanted:Qty: 1 on 09/10/2020 by Victorino Scott M.D. at [facility] Ear Implant [facility] 05/25/2022 [id number] / / [id number] Procedures Procedure Name Priority Date/Time Associated Diagnosis Comments AUDIOLOGY EVALUATION 03/31/2023 12:00 AM WATERSHED TENDER from Last 3 Months Results * AUDIOLOGY EVALUATION (03/31/2023 12:00 AM WATERSHED TENDER) 03/31/2023 Cheryl Mir AUDIOLOGY SERVIC ES ORDERABLES from Last 3 Months
--- OUTSIDE RECORDS SUMMARY | 2023-04-20 08:06 | XMS_ITS | Encounter Summary ---
Author Name Unknown Organization [facility] Address [address] [place] [address] Care Team Providers Care Spinner Frame Name Role Phone Unavailable Primary Care Provider Unavailabl e Reason for Visit * Appointment Request (Routine) - Closed Specialty Diagnoses / Procedures Referred By Cesilia moore Referred To Contact Otorhinolaryngology Referral ID Status Reason Start Date Expiration Date Visits Re quested Visits Authorized [id number] Closed 03/31/2023 03/30/2024 1 1 Encounter Details Date Type Department Care Team (Latest Contact Info) Description 04/15/2023 8:30 AM JUNIOR LINUX SYSTEMS ADMINISTRATOR Diagnostic Department of Otorhinolaryngology in [place], [place] [address] [place] [address] Wendy Reynolds Au.D., C.C.C.-A [address] [place] [phone] Loss Hearing Sensorineural Bilateral (Primary Dx) Social History Tobacco Use Types [...] on file documented as of this encounter Progress Notes * Destiny Zhao, AUD - 04/15/2023 8:30 AM CST SUBJECTIVE REFERRAL: Self CHIEF COMPLAINT/REASON FOR VISIT Hearing aid fitting HISTORY 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 She had an updated audiogram on 03/31/2023. Her medical history is significant for Otosclerosis. Dr. Scott performed a stapedotomy on the right side 09/10/2020. Ms. Chatman reported she has difficulty with soft speech and in noise. OBJECTIVE Otoscopic evaluation was performed and indicated clear ear canals bilaterally. Ms. Chatman was fit with amplification. Hearing Aid Information Left Right Greenhouse Florist ReSound ReSound Model Nexia 760S Nexia 760S Style RITE (zblakmkd-zv-zyc-ear) RITE (cyfplmyy-lx-pqt-ear) Serial Number [id number] Battery Size Iberia Ion Rechargeable Iberia Ion Rechargeable Coupling 2M casserole preparer,small open dome 2M casserole preparer,small open dome Warranty Date 05/02/2026 05/02/2026 Trial Period End Date 06/02/2023 Phone Connectivity Not connected Accessory Information Serial Number End of Warranty Date Cooperative Education Director [id number] 05/02/2026 Aided real-ear probe microphone measures showed good audibility when compared to NAL-NL2 targets for conversational level speech inputs (55 and 65 dB SPL). Hear in Noise program was auto-related to the All-Around program. Ms. Chatman was satisfied with theprograms available and expressed understanding of when to use the Hear in Noise program. ASSESSMENT/PLAN Realistic expectations and the process of acclimatization were discussed. Care, use and adjustment of hearing aid(s) were explained and demonstrated. Those present reported an adequate understanding and ability to manipulate the hearing aid(s). Ms. Chatman did not want to connect to a cellphone at this time. She was informed if this changed wecan pair the devices at a later time. 1. Begin daily use of amplification. 2. Return for hearing aid check in 2-3 weeks. 3. Contact the clinic with questions or concerns. #1 Loss Hearing Sensorineural Bilateral Appointment assisted by Destiny Zhao, audiology spanish language lecturer OR LINUX SYSTEMS ADMINISTRATOR documented in this encounter Plan of Treatment Upcoming Encounters Date Type Department Care Team (Late st Contact Info) Description 05/06/2023 9:30 AM JUNIOR LINUX SYSTEMS ADMINISTRATOR Diagnostic Department of Otorhinolaryngology in [place], [place] [address] [place] [address] Wendy Reynolds Au.D., C.C.C.-A [address] [place] [address] documented as of this encounter Visit Diagnoses Diagnosis Loss Hearing Sensorineural Bilateral- Primary documented in this encounter
--- OUTSIDE RECORDS SUMMARY | 2023-04-20 08:06 | XMS_ITS | Clinical Summary ---
Author Name Unknown Organization [facility] Address [address] [place] [address] Care Team Providers Care Flatwork Finisher Hand Name Role Phone [facility], [facility] Primary Care Provider Allergies Active [...] Dates Next Due TD,PF 7+ (Tenivac) 08/23/1999 Family History Medical History Relation Comments Cancer Father Tumor in hand re moved Heart Disease Father Lipids Father Cancer - colorectal Maternal Aunt Cardiovascular Maternal Grandfather Cardiovascular Maternal Grandmother Breast Cancer Mother at age 57 Lipids Mother Breast Cancer Other Maternal Great A unt Relation Status Comments Father Alive Maternal Aunt Maternal Grandfather Maternal Grandmother Mother Alive Other Paternal Grandfather Paternal Grandmother Sister Alive Son Alive Social History Tobacco Use Types Packs/Day Years [...] Comments Blood Pressure 130/93 03/09/2021 6:28 AM CIVIL ENGINEERING INTERN Pulse 74 03/09/2021 6:28 AM CIVIL ENGINEERING INTERN Temperature 36.1 ??C (96.9 ??F) 03/09/2021 3:18 AM CS T Respiratory Rate 16 03/09/2021 3:18 AM CIVIL ENGINEERING INTERN Oxygen Saturation 96% 03/09/2021 6:29 AM CIVIL ENGINEERING INTERN Inhaled Oxygen Concentration - - Weight 58.1 kg (128 lb) 07/02/2013 9:46 AM CDT Height 161.3 cm (5' 3.5) 07/02/2013 9:46 AM CDT Body Mass Index 22.32 07/02/2013 9:46 AM CDT Plan of Treatment Health Maintenance Due Date Last Done Comments ADVANCE CARE PLANNING 1967 ANNUAL REVIEW OF HM ORDERS 1967 CT COLONOGRAPHY 1967 FIT 1967 FLEX SIG 1967 HEPATITIS B IMMUNIZATION (1 of 3 - 3-dose series) 1967 sDNA (Cologuard) 1967 COLONOSCOPY 10/02/1977 COLORECTAL CANCER SCREENING 10/02/1977 HIV SCREENING 10/02/1982 HEPATITIS C SCREENING 10/02/1985 DTAP/TDAP/TD IMMUNIZATION (1 - Tdap) 08/24/1999 08/23/1999 MAMMO SCREENING 08/09/2009 08/09/2008, 10/2006, 07/29/2005, Additional history exists PAP 04/30/2012 04/30/2010, 04/29, 05/24/2001 YEARLY PREVENTIVE VISIT 05/01/2013 05/01/19 13, 04/30/2010, 05/22/2007, Additional history exists LIPID 05/01/2017 05/01/2012, 04/29, 06/17/2005, Additional history exists ZOSTER IMMUNIZATION (1 of 2) 10/02/2017 COVID-19 Vaccine ( season) 2022 06/27/2020, 06/06/2020 INFLUENZA VACCINE (#1) 2022 PHQ-2 (once per calendar year) 2023 HPV IMMUNIZATION Aged Out No longer e ligible based on patient's age to complete this topic IPV IMMUNIZATION Aged Out No longer e ligible based on patient's age to complete this topic MENINGITIS IMMUNIZATION Aged Out No l onger eligible based on patient's age to complete this topic Pneumococcal Vaccine: Pediatrics (0 to 5 Years) and At-Risk Patients (6 to 64 Years) Aged Out No longer eligible based on patient's age to complete this topic RSV MONOCLONAL ANTIBODY Aged Out No l onger eligible based on patient's age to complete this topic Care Teams Flatwork Finisher Hand Relationship Specialty Start Date End Date Clinic, [address] [address] PCP - General 03/09/21
--- OUTSIDE RECORDS SUMMARY | 2023-04-20 08:07 | XMS_ITS | Encounter Summary ---
Author Name Unknown Organization [facility] Address [address] [place] [address] Care Team Providers Care Rn Medication Name Role Phone Danii Wild MD Primary Care Provider [facility] Primary Care Provider Encounter Details Date Type Department Care Team (Late st Contact Info) Description [facility] [address] [place] [address] Social History Tobacco Use Types Packs/Day Years Used Date Smoking Tobacco: Never Smokeless Tobacco: Never Alcohol Use Standard Drinks/Week Comments Yes 0 (1 standard drink = 0.6 oz pur e alcohol) rare Sex and Gender Information Value Date Recorded Sex Assigned at Not on file Gender Identity Not on file Sexual Orientation Not on file documented as of this encounter Plan of Treatment Not on file documented as of this encounter Visit Diagnoses Not on filedocumented in this encounter Care Teams Rn Medication Relationship Specialty Start Date End Date Danii Wild MD PCP - General Family Practice 07/21/11 03/08/[address] [address] PCP - General 03/09/21 documented as of this encounter
--- OUTSIDE RECORDS SUMMARY | 2023-04-20 08:07 | XMS_ITS | Encounter Summary ---
Author Name Unknown Organization [facility] Address [address] [place] [address] Care Team Providers Care Resource Conservation Specialist Name Role Phone [facility] Primary Care Provider Encounter Details Date Type Department Care Team (Late st Contact Info) Description 03/09/2021 Documentation Only INTERFACED REPORT Unknown, Provider Social History Tobacco Use Types Packs/Day Years Used Date Smoking Tobacco: Never Smokeless Tobacco: Never Alcohol Use Standard Drinks/Week Comments Yes 0 (1 standard drink = 0.6 oz pur e alcohol) rare Sex and Gender Information Value Date Recorded Sex Assigned at Not on file Gender Identity Not on file Sexual Orientation Not on file COVID-19 Exposure Response Date Recorded In the last month, have you been in contact with someone who was confirmed or suspected to have Coronavirus / COVID-19? No / Unsure 03/09/2021 3:14 AM INGREDIENT HANDLER documented as of this encounter Plan of Treatment Not on file documented as of this encounter Visit Diagnoses Not on filedocumented in this encounter Care Teams Resource Conservation Specialist Relationship Specialty Start Date End Date [address] [id number] PCP - General 03/09/21 documented as of this encounter
--- OUTSIDE RECORDS SUMMARY | 2023-04-20 08:07 | XMS_ITS | Clinical Summary ---
Author Name Unknown Organization [facility] Address [address] [place] [address] Care Team Providers Care Educational Adviser Name Role Phone Unavailable Primary Care Provider Unavailabl e Source Comments You are receiving this document as you are listed as the primary care provider,follow-up provider, or the patient has been referred to you for consultation.This is in compliance with the Medicare and[facility] Hospital[facility] EHR Incentive Program,which states Providers who transition their patient to another setting of careor provider of care or refers their patient to another provider of care shouldprovide summary care record for each transition of care or referral. [facility] Allergies Active Allergy Reactions Criticality Noted Date Comments Penicillins Rash 10/17/2017 Medications Medication Sig Dispensed Refills Start Date End Date Status escitalopram oxalate (LEXAPRO) 20 MG tablet Take 20 mg by mouth daily. 0 Active amphetamine-dextroamphe tamine (ADDERALL XR) 20 MG 24 hour release capsule Take 40 mg by mouth every morning. 0 04/28/2020 Active gabapentin (NEURONTIN) 300 MG capsule 0 04/04/2020 Active Active Problems No known active problems Social History Tobacco Use Types Packs/Day Years Used Date Smoking Tobacco: Never Smokeless Tobacco: Never Alcohol Use Standard Drinks/Week Comments Yes 0 (1 standard drink = 0.6 oz pur e alcohol) 5 wk Sex and Gender Information Value Date Recorded Sex Assigned at Not on file Gender Identity Not on file Sexual Orientation Not on file Last Filed Vital Signs Vital Sign Reading Time Taken Comments Blood Pressure 127/83 10/17/2017 8:11 AM CDT Pulse 84 05/10/2020 10:05 AM BLOG WRITER Temperature - - Respiratory Rate - - Oxygen Saturation - - Inhaled Oxygen Concentration - - Weight - - Height - - Body Mass Index - - Plan of Treatment Health Maintenance Due Date Last Done Comments Cervical Cancer Screening Due 1967 Colon Cancer Screening Plan Due 1967 Hep C Screening (Preventive Services) 1967 HepB (1) 1967 Mammogram 1967 COVID-19 Vaccine (#1) 04/04/1968 HIV Screening (Preventive Services) 1983 Adult Preventive Visit 10/02/1985 DTaP/Tdap/Td (1 - Tdap) 10/02/1986 Cholesterol 10/02/2012 Zoster/Shingles (1 of 2) 10/02/2017 Influenza (#1) 2022 HepA Aged Out No longer eligi ble based on patient's age to complete this topic Hib Aged Out No longer eligi ble based on patient's age to complete this topic IPV (Polio) Aged Out No longer eligi ble based on patient's age to complete this topic MCV4 Aged Out No longer eligi ble based on patient's age to complete this topic Pneumococcal Aged Out No longer eligi ble based on patient's age to complete this topic
[2023-04-20 15:29] LABS: Chlamydia DNA Amplified* NOT DETECTED (No Detected); GC DNA Amplified* NOT DETECTED (No Detected)
== END 2023-04-20 08:03 | disposition home or self-care (01) ==
PROVIDERS: PCP Family Medicine; Visit Provider Physician Assistant Medical
DX: Z00.00 Encounter for general adult medical examination without abnormal findings (principal); E55.9 Vitamin D deficiency, unspecified; E78.5 Hyperlipidemia, unspecified; Z13.0 Encounter for screening for diseases of the blood and blood-forming organs and certain disorders involving the immune mechanism; Z13.29 Encounter for screening for other suspected endocrine disorder; Z72.89 Other problems related to lifestyle; Z11.3 Encounter for screening for infections with a predominantly sexual mode of transmission
CPT/HCPCS: 80053; 80061; 82306; 82728; 84443; 87491; 87591

== ENCOUNTER 2023-07-21 07:33 | Outpatient (CLI) | payer OTHER, SELFPAY ==
--- OUTSIDE RECORDS SUMMARY | 2023-08-11 11:42 | XMS_ITS | Clinical Summary ---
Author Name Unknown Organization [facility] Address [address] [place] [address] Care Team Providers Care Court Officer Name Role Phone Unavailable Primary Care Provider Unavailabl e Source Comments Patient records contain information from all sites at [facility]. For routine questions regarding patient records, call [phone] during business hours, M-F 8:00 AM - 5:00 PM Central Time. Record requests for emergency care only can be directed to [phone] at any time.[facility] Allergies Active Allergy Reactions Criticality Noted Date [...] oxyCODONE (Roxicodone) 5 mg immediate release tabletIndications:Ac [place] Pain Exception Take 1 tablet (5 mg [...] Overview: Added automatically from request for surgery [id number] Encounters Date Type Department Care Team Description 05/13/2023 9:30 AM FEATURES REPORTER Diagnostic Department of Otorhinolaryngology in [place], [place] [address] [place] [address] Wendy Reynolds Au.D., C.C.C.-A Otosclerosis Bilateral (Primary [...] this topic Medical Devices Implanted Type Area Senior Research Project Manager Device Identifier Shelf Expiration Date Model / Serial / Lot Stapes Piston Eclipse 0.5mm X 4.00mm - Moreno [id number] Implanted:Qty: 1 on 07/30/2016 Ear Implant Other/Legacy - See Implant Description [employer] Description:Device Manufactu [facility]. Body Location - Other. Left. Device Status Text - AUD [id number]. Stapes Piston Eclipse 0.5mm X 4.25mm - Moreno [id number] Implanted:Qty: 1 on 07/30/2016 Ear Implant Other/Legacy - See Implant Description [employer] Description:Device Manufactu [facility] [employer]. Body Location - Other. Left. Device Status Text - AUD [id number]. Abtmnt Hd Ecl Ossclr 0.5x4.0 - [id number] Implanted:Qty: 1 on 09/10/2020 by Victorino Scott M.D. at [facility] Ear Implant [employer] 05/25/2022 [id number] / / [id number] Procedures Procedure Name Priority Date/Time Associated Diagnosis Comments EXTI COMPREHENSIVE METABOLIC PANEL, S/P Routine 03/09/2021 3:32 AM FEATURES REPORTER from Last 3 Months or Most Recently Relevant to Health Maintenance
--- OUTSIDE RECORDS SUMMARY | 2023-08-11 11:42 | XMS_ITS | Encounter Summary ---
Author Name Unknown Organization [facility] Address [address] [place] [address] Care Team Providers Care Strand Galvanizer Name Role Phone Unavailable Primary Care Provider Unavailabl e Encounter Details Date Type Department Care Team (Latest Contact Info) Description 05/13/2023 9:30 AM OPEN HEARTH MELTER Diagnostic Department of Otorhinolaryngology in [place], [place] [address] [place] [address] Wendy Reynolds Au.D., C.C.C.-A [address] [place] [address] Otosclerosis Bilateral (Primary Dx) Social History Tobacco [...] on 05/12/2023: Hearing Aid Information Left Right Carrot Harvester ReSound ReSound Model Nexia 760S Nexia 760S Style RITE (rfootymb-go-xps-ear) RITE (qbheocfu-wx-dms-ear) Serial Number [id number] Battery Size [place] Ion Rechargeable [place] Ion Rechargeable Coupling 2L foot setter,small open dome 2L foot setter,small open dome Warranty Date 05/02/2026 05/02/2026 Trial Period End Date 06/02/2023 Phone Connectivity Not connected Accessory Information Serial Number End of Warranty Date Telecom Field Technician [id number] 05/02/2026 Today, Ms. Chatman reports good use [...] satisfied with the adjustments made. Changed the foot setter length for both devices for shorter lengths. We changed the domes from a smallopen to a medium open dome. This allowed for better retention of both device. Ms. Chatman was satisfied with the changes made. Adjustments to the coupling are as follows: Hearing Aid Information Left Right Carrot Harvester ReSound ReSound Model Nexia 760S Nexia 760S Style RITE (pagvedub-nb-yha-ear) RITE (cxauhodb-qi-hxi-ear) Serial Number [id number] Battery Size [place] Ion Rechargeable [place] Ion Rechargeable Coupling 0L foot setter,medium open dome 1L foot setter,medium open dome Warranty Date 05/02/2026 05/02/2026 Trial Period End Date 06/02/2023 Phone Connectivity Not connected Accessory Information Serial Number End of Warranty Date Telecom Field Technician [id number] 05/02/2026 ASSESSMENT/PLAN Following hearing aid cleaning, listening check indicates good sound quality and loudness. The following components were replaced during cleaning: wax guards, domes Follow-up as scheduled. Call our clinic with any questions or concerns which may arise. #1 Otosclerosis Bilateral Appointment assisted by Destiny Zhao, audiology cook helper HEARTH MELTER documented in this encounter Plan of Treatment Not on file documented as of this encounter Visit Diagnoses Diagnosis Otosclerosis Bilateral- Primary documented in this encounter
--- OUTSIDE RECORDS SUMMARY | 2023-08-11 11:42 | XMS_ITS ---
Author Name Unknown Organization [facility] Address [address] [place] [address] Care Team Providers Care Marketing Information Analyst Name Role Phone Unavailable Unavailable Unavailable Surgery Details Not on file Complications Check Surgery Details section. Procedure Estimated Blood Loss Check Surgery Details section. Procedure Findings Check Surgery Details section. Procedure Specimens Taken Check Surgery Details section.
--- OUTSIDE RECORDS SUMMARY | 2023-08-11 11:42 | XMS_ITS | Referral Summary ---
Author Name Unknown Organization [facility] Address [address] [place] [address] Care Team Providers Care Geographic Information Scientist Name Role Phone Unavailable Primary Care Provider Unavailabl e Source Comments Patient records contain information from all sites at [facility]. For routine questions regarding patient records, call [phone] during business hours, M-F 8:00 AM - 5:00 PM Central Time. Record requests for emergency care only can be directed to [phone] at any time.[facility] Encounters Date Type Department Care Team Description 05/13/2023 9:30 AM GENERAL LEDGER ACCOUNTANT Diagnostic Department of Otorhinolaryngology in [place], [place] [address] [place] [address] Wendy Reynolds Au.D., C.C.C.-A Otosclerosis Bilateral (Primary [...] oxyCODONE (Roxicodone) 5 mg immediate release tabletIndications:Ac [place] Pain Exception Take 1 tablet (5 mg [...] Overview: Added automatically from request for surgery [id number] Social History Tobacco Use Types Packs/Day Years [...] on file Medical Devices Implanted Type Area Cutting Supervisor Device Identifier Shelf Expiration Date Model / Serial / Lot Stapes Piston Eclipse 0.5mm X 4.00mm - Moreno [id number] Implanted:Qty: 1 on 07/30/2016 Ear Implant Other/Legacy - See Implant Description [employer] Description:Device Manufactu rer - [employer]. Body Location - Other. Left. Device Status Text - AUD [id number]. Stapes Piston Eclipse 0.5mm X 4.25mm - [place]no [id number] Implanted:Qty: 1 on 07/30/2016 Ear Implant Other/Legacy - See Implant Description [employer] Description:Device Manufactu rer - [employer]. Body Location - Other. Left. Device Status Text - AUD [id number]. Abtmnt Hd Ecl Ossclr 0.5x4.0 - [id number] Implanted:Qty: 1 on 09/10/2020 by Victorino Scott M.D. at [facility] Ear Implant [employer] 05/25/2022 [id number] / [id number] Procedures Procedure Name Priority Date/Time Associated Diagnosis Comments EXTI COMPREHENSIVE METABOLIC PANEL, S/P Routine 03/09/2021 3:32 AM GENERAL LEDGER ACCOUNTANT from Last 3 Months or Most Recently Relevant to Health Maintenance
--- OUTSIDE RECORDS SUMMARY | 2023-08-11 11:43 | XMS_ITS | Encounter Summary ---
Author Name Unknown Organization [facility] Address [address] [place] [address] Care Team Providers Care Shift Coordinator Name Role Phone [facility] Primary Care Provider Encounter Details Date [...] COVID-19? No / Unsure 03/09/2021 3:14 AM NET UI DEVELOPER documented as of this encounter Plan of Treatment Not on file documented as of this encounter Visit Diagnoses Not on filedocumented in this encounter Care Teams Shift Coordinator Relationship Specialty Start Date End Date [address] [id number] PCP - General 03/09/21 documented as of this encounter
--- OUTSIDE RECORDS SUMMARY | 2023-08-11 11:43 | XMS_ITS | Referral Summary ---
Author Name Unknown Organization [facility] Address [address] [place] [address] Care Team Providers Care Wire Spiral Binder Name Role Phone Clinic, [facility] Primary Care Provider Allergies Active Allergy [...] Comments Blood Pressure 130/93 03/09/2021 6:28 AM SPECIFICATION CONSULTANT Pulse 74 03/09/2021 6:28 AM SPECIFICATION CONSULTANT Temperature 36.1 ??C (96.9 ??F) 03/09/2021 3:18 AM CS T Respiratory Rate 16 03/09/2021 3:18 AM SPECIFICATION CONSULTANT Oxygen Saturation 96% 03/09/2021 6:29 AM SPECIFICATION CONSULTANT Inhaled Oxygen Concentration - - Weight 58.1 kg (128 lb) 07/02/2013 9:46 AM CDT Height 161.3 cm (5' 3.5) 07/02/2013 9:46 AM CDT Body Mass Index 22.32 07/02/2013 9:46 AM CDT Plan of Treatment Not on file Procedures Procedure Name Priority Date/Time Associated Diagnosis Comments COMPREHENSIVE METABOLIC PANEL STAT 03/09/2021 3:32 AM SPECIFICATION CONSULTANT LIPID REFLEX TO DIRECT LDL PANEL Routine 05/01/2012 9:30 AM SPECIFICATION CONSULTANT Routine general medical examination at a [facility] PAP IMAGED THIN LAYER SCREEN Routine 04/30/2010 12:00 AM SPECIFICATION CONSULTANT Routine general medical examination at a [facility] facility HC MAMMOGRAM, SCREENING BILATERAL Routine 08/09/2008 Breast Cancer Screening from Last 3 Months or Most Recently Relevant to Health Maintenance Results * (ABNORMAL) Comprehensive metabolic panel (03/09/2021 3:32 AM SPECIFICATION CONSULTANT) Sodium 139 133 - 144 mmol/L 03/09/2021 3:56 AM [facility] Potassium 3.6 3.4 - 5.3 mmol/L 03/09/2021 3:56 AM SPECIFICATION CONSULTANT LABORATORY Chloride 107 94 - 109 mmol/L 03/09/2021 3:56 AM [facility] Carbon Dioxide (CO2) 27 20 - 32 mmol/L 03/09/2021 3:56 AM [facility] Anion Gap 5 3 - 14 mmol/L 03/09/2021 3:56 AM SPECIFICATION CONSULTANT LABORATORY Urea Nitrogen 15 7 - 30 mg/dL 03/09/2021 3:56 AM [facility] Creatinine 0.77 0.52 - 1.04 mg/dL 03/09/2021 3:56 AM [facility] Calcium 9.4 8.5 - 10.1 mg/dL 03/09/2021 3:56 AM SPECIFICATION CONSULTANT LABORATORY Glucose 133(H) 70 - 99 mg/dL 03/09/2021 3:56 AM SPECIFICATION CONSULTANT LABORATORY Alkaline Phosphatase 129 40 - 150 U/L 03/09/2021 3:56 AM SPECIFICATION CONSULTANT LABORATORY AST 22 0 - 45 U/L 03/09/2021 3:56 AM SPECIFICATION CONSULTANT LABORATORY ALT 37 0 - 50 U/L 03/09/2021 3:56 AM SPECIFICATION CONSULTANT LAB[facility] Protein Total 7.3 6.8 - 8.8 g/dL 03/09/2021 3:56 AM SPECIFICATION CONSULTANT LAB[facility]ORY Albumin 3.6 3.4 - 5.0 g/dL 03/09/2021 3:56 AM SPECIFICATION CONSULTANT LABORATORY Bilirubin Total 0.3 0.2 - 1.3 mg/dL 03/09/2021 3:56 AM SPECIFICATION CONSULTANT LABORATORY GFR Estimate 88 >60 mL/min/1.7 3m2 03/09/2021 3:56 AM [facility] Comment:As of October 05, 2020, eGFR is calculated by the CKD-EPI creatinine equation, without race adjustment. eGFR can be influenced by muscle mass, exercise, and diet. The reported eGFR is an estimation only and is only applicable if the renal function is stable. Blood STRUCTURE OF RIGHT UPPER LIMB / Unknown Venipuncture / Unknown 03/09/2021 3:32 AM SPECIFICATION CONSULTANT 03/09/2021 3:36 AM SPECIFICATION CONSULTANT Itzel Mancia MD LAB - BLOOD RONALD VIGIL [facility] Organization Address City/State/ZIP Co de Phone Number LABORATORY [facility] [address] Lab (1st floor, no room number) [place] [address], [facility] [phone] * (ABNORMAL) Lipid panel reflex to direct LDL (05/01/2012 9:30 AM SPECIFICATION CONSULTANT) [facility] Signature Cholesterol 206(H) 0 - 200 mg/dL [facility] Comment: LDL Cholesterol is the primary guide to therapy. The NCEP recommends further evaluation of: patients with cholesterol greater than 200 mg/dL if additional risk factors are present, cholesterol greater than 240 mg/dL, triglycerides greater than 150 mg/dL, or HDL less than 40 mg/dL. Triglycerides 70 0 - 150 mg/dL [facility] HDL Cholesterol 60 50 - 110 mg/dL [facility] LDL Cholesterol Calculated 132(H) 0 - 129 mg/dL [facility] Comment: LDL Cholesterol is the primary guide to therapy: LDL-cholesterol goal in high risk patients is <100 mg/dL and in very high risk patients is <70 mg/dL. VLDL-Cholesterol 14 0 - 30 mg/dL [facility] Cholesterol/HDL Ratio 3.4 0.0 - 5.0 [facility] Blood specimen (specimen) 05/01/2012 9:30 AM SPECIFICATION CONSULTANT 05/01/2012 9:32 AM SPECIFICATION CONSULTANT Rogerio Wild MD LAB - BLOOD ORD ERABLES [facility] [address] [place] [address] * PAP imaged thin layer screen (04/30/2010 12:00 AM SPECIFICATION CONSULTANT) PAP OTHER-NIL EM>40 COPATH Copath Report Patient Name: GLADYS FUENTES MR#: [id number] Specimen #: [id number] Collected: 04/30/2010 Received: 05/04/2010 Reported: 05/05/2010 15:44 [...] Juanito Claudio M.D. Processed and screened at [facility] CLINICAL HISTORY: Previous normal pap Date of Last Pap: 05/22/07, Papanicolaou Test Limitations: ??Cervical cytology is a screening test with limited sensitivity; regular screening is critical for cancer prevention; Pap tests are primarily effective for the diagnosis/preventi on of squamous cell carcinoma, not adenocarcinomas or other cancers. TESTING LAB LOCATION: [facility] [address], [place] ??[id number] COLLECTION SITE: Client: ??[facility] Location: FP (R) COPATH Cytologic material (specimen) 04/30/2010 05/04/2010 11:10 AM SPECIFICATION CONSULTANT Rogerio Wild MD LAB - OPTIME CL INICAL SPECIMEN COPATH * MAMMOGRAM, SCREENING (08/09/2008) MAMMOGRAM Anatomical Region Laterality Modality Other Impressions 08/09/2008 RADIOLOGIST'S INTERPRETATION: Breast parenchyma: ??heterogeneously dense IMAGING IMPRESSION: (CATEGORY-1) NEGATIVE Adalid Newman M.D. D/T: ??08/14/08 Allyssa Dela Cruz PA-C SPECIAL IMAGING S TUDIES from Last 3 Months or Most Recently Relevant to Health Maintenance Care Teams Wire Spiral Binder Relationship Specialty Start Date End Date [facility], [address] [address] PCP - General 03/09/21
--- OUTSIDE RECORDS SUMMARY | 2023-08-11 11:43 | XMS_ITS | Encounter Summary ---
Author Name Unknown Organization [facility] Address [address] [place] [address] Care Team Providers Care Tourist Information Assistant Name Role Phone Danii Wild MD Primary Care Provider [facility] Primary Care Provider Encounter Details Date Type Department Care Team (Late st Contact Info) Description [facility] Rachana Beck MD [address] [place] [address] Social History Tobacco Use Types Packs/Day Years [...] on filedocumented in this encounter Care Teams Tourist Information Assistant Relationship Specialty Start Date End Date Danii Wild MD PCP - General Family Practice 07/21/11 03/08/[address] [address] PCP - General 03/09/21 documented as of this encounter
--- OUTSIDE RECORDS SUMMARY | 2023-08-11 11:43 | XMS_ITS | Clinical Summary ---
Author Name Unknown Organization [facility] Address [address] [place] [address] Care Team Providers Care Asphalt Paver Operator Name Role Phone [facility] Primary Care Provider Allergies Active Allergy [...] Comments Blood Pressure 130/93 03/09/2021 6:28 AM ACCESS LIAISON Pulse 74 03/09/2021 6:28 AM ACCESS LIAISON Temperature 36.1 ??C (96.9 ??F) 03/09/2021 3:18 AM CS T Respiratory Rate 16 03/09/2021 3:18 AM ACCESS LIAISON Oxygen Saturation 96% 03/09/2021 6:29 AM ACCESS LIAISON Inhaled Oxygen Concentration - - Weight 58.1 [...] COVID-19 Vaccine ( season) 2022 06/27/2020, 06/06/2020 PHQ-2 (once per calendar year) 2023 INFLUENZA VACCINE (Season Ended) 2023 GLUCOSE 03/09/2024 03/09/2021, 06/2012, 06/09/2009, Additional history exists HPV IMMUNIZATION Aged [...] COMPREHENSIVE METABOLIC PANEL STAT 03/09/2021 3:32 AM ACCESS LIAISON LIPID REFLEX TO DIRECT LDL PANEL Routine 05/01/2012 9:30 AM ACCESS LIAISON Routine general medical examination at a health care facility PAP IMAGED THIN LAYER SCREEN Routine 04/30/2010 12:00 AM ACCESS LIAISON Routine general medical examination at a [facility] care facility HC MAMMOGRAM, SCREENING BILATERAL Routine 08/09/2008 Breast Cancer Screening from Last 3 Months or Most Recently Relevant to Health Maintenance Results * (ABNORMAL) Comprehensive metabolic panel (03/09/2021 3:32 AM ACCESS LIAISON) Sodium 139 133 - 144 mmol/L 03/09/2021 3:56 AM ACCESS LIAISON [facility] Potassium 3.6 3.4 - 5.3 mmol/L 03/09/2021 3:56 AM ACCESS LIAISON [facility] Chloride 107 94 - 109 mmol/L 03/09/2021 3:56 AM ACCESS LIAISON [facility] Carbon Dioxide (CO2) 27 20 - 32 mmol/L 03/09/2021 3:56 AM ACCESS LIAISON [facility] Anion Gap 5 3 - 14 mmol/L 03/09/2021 3:56 AM ACCESS LIAISON [facility] Urea Nitrogen 15 7 - 30 mg/dL 03/09/2021 3:56 AM ACCESS LIAISON [facility] Creatinine 0.77 0.52 - 1.04 mg/dL 03/09/2021 3:56 AM [facility] Calcium 9.4 8.5 - 10.1 mg/dL 03/09/2021 3:56 AM [facility] Glucose 133(H) 70 - 99 mg/dL 03/09/2021 3:56 AM [facility] Alkaline Phosphatase 129 40 - 150 U/L 03/09/2021 3:56 AM [facility] AST 22 0 - 45 U/L 03/09/2021 3:56 AM [facility] ALT 37 0 - 50 U/L 03/09/2021 3:56 AM [facility] Protein Total 7.3 6.8 - 8.8 g/dL 03/09/2021 3:56 AM [facility] Albumin 3.6 3.4 - 5.0 g/dL 03/09/2021 3:56 AM [facility] Bilirubin Total 0.3 0.2 - 1.3 mg/dL 03/09/2021 3:56 AM [facility] GFR Estimate 88 >60 mL/min/1.7 3m2 03/09/2021 3:56 AM [facility] Comment:As of October 05, 2020, eGFR is calculated by the CKD-EPI creatinine equation, without race adjustment. eGFR can be influenced by muscle mass, exercise, and diet. The reported eGFR is an estimation only and is only applicable if the renal function is stable. Blood STRUCTURE OF RIGHT UPPER LIMB / Unknown Venipuncture / Unknown 03/09/2021 3:32 AM ACCESS LIAISON 03/09/2021 3:36 AM ACCESS LIAISON Itzel Mancia MD LAB - BLOOD RONALD VIGIL [facility] Acute [facility] Lab [address] Lab (1st floor, no room number) [place] [address], [facility] [phone] * (ABNORMAL) Lipid panel reflex to direct LDL (05/01/2012 9:30 AM ACCESS LIAISON) [facility] Cholesterol 206(H) 0 - 200 mg/dL [facility] Comment: LDL Cholesterol is the primary guide to therapy. The NCEP recommends further evaluation of: patients with cholesterol greater than 200 mg/dL if additional risk factors are present, cholesterol greater than 240 mg/dL, triglycerides greater than 150 mg/dL, or HDL less than 40 mg/dL. Triglycerides 70 0 - 150 mg/dL [facility] HDL Cholesterol 60 50 - 110 mg/dL [facility] LDL Cholesterol Calculated 132(H) 0 - 129 mg/dL [facility] Comment: LDL Cholesterol is the primary guide to therapy: LDL-cholesterol goal in high risk patients is <100 mg/dL and in very high risk patients is <70 mg/dL. VLDL-Cholesterol 14 0 - 30 mg/dL [facility] Cholesterol/HDL Ratio 3.4 0.0 - 5.0 [facility] Blood specimen (specimen) 05/01/2012 9:30 AM ACCESS LIAISON 05/01/2012 9:32 AM ACCESS LIAISON Rogerio Wild MD LAB - BLOOD ORD ERABLES [facility] [address] [place] [address] * PAP imaged thin layer screen (04/30/2010 12:00 AM ACCESS LIAISON) PAP OTHER-NIL EM>40 COPATH Copath Report Patient Name: GLADYS FUENTES MR#: [id number] Specimen #: [id number] Collected: 04/30/2010 Received: 05/04/2010 Reported: 05/05/2010 15:44 [...] Juanito Claudio M.D. Processed and screened at [facility] CLINICAL HISTORY: Previous normal pap Date of Last Pap: 05/22/07, Papanicolaou Test Limitations: ??Cervical cytology is a screening test with limited sensitivity; regular screening is critical for cancer prevention; Pap tests are primarily effective for the diagnosis/preventi on of squamous cell carcinoma, not adenocarcinomas or other cancers. TESTING LAB LOCATION: [address] ??[address] COLLECTION SITE: Client: ??[facility] Location: [facility] Cytologic material (specimen) 04/30/2010 05/04/2010 11:10 AM ACCESS LIAISON Rogerio Wild MD LAB - OPTIME CL INICAL SPECIMEN COPATH * MAMMOGRAM, SCREENING (08/09/2008) MAMMOGRAM Anatomical Region Laterality Modality Other Impressions 08/09/2008 RADIOLOGIST'S INTERPRETATION: Breast parenchyma: ??heterogeneously dense IMAGING IMPRESSION: (CATEGORY-1) NEGATIVE Adalid Newman M.D. D/T: ??08/14/08 Allyssa Dela Cruz PA-C SPECIAL IMAGING S TUDIES from Last 3 Months or Most Recently Relevant to Health Maintenance Care Teams Asphalt Paver Operator Relationship Specialty Start Date End Date Clinic, [address] [address] PCP - General 03/09/21
--- OUTSIDE RECORDS SUMMARY | 2023-08-11 11:43 | XMS_ITS | Clinical Summary ---
Author Name Unknown Organization [facility] Address [address] [place] [address] Care Team Providers Care Motion Graphics Designer Name Role Phone Unavailable Primary Care Provider Unavailabl e Source Comments You are receiving this document as you are listed as the primary care provider,follow-up provider, or the patient has been referred to you for consultation.This is in compliance with the Medicare and[facility] Hospital[facility] EHR Incentive Program,which states Providers who transition their patient to another setting of careor provider of care or refers their patient to another provider of care shouldprovide summary care record for each transition of care or referral. [facility] Active Allergy Reactions Criticality Noted Date [...] AM CDT Pulse 84 05/10/2020 10:05 AM CYTOLOGY TEACHER Temperature - - Respiratory Rate - - [...] 2022-2 4 season) 2022 06/27/2020, 06/06/2020 Influenza (Season Ended) 2023 HepA Aged Out No longer eligi ble [...]
== END 2023-07-21 07:34 | disposition home or self-care (01) ==
LOC: NFLDREF 08-11 11:39
PROVIDERS: PCP Physician Assistant Medical; Referring Provider Physician Assistant Medical; Visit Provider Physician Assistant Medical
DX: E78.5 Hyperlipidemia, unspecified (principal)
CPT/HCPCS: 80061; 80076

== ENCOUNTER 2023-07-22 08:43 | Outpatient (CLI) | payer OTHER, SELFPAY ==
--- OUTSIDE RECORDS SUMMARY | 2023-07-22 08:45 | XMS_ITS | Encounter Summary ---
Author Name Unknown Organization [facility] Address [address] [place] [address] Care Team Providers Care Tour Bus Driver/Guide Name Role Phone Unavailable Primary Care Provider Unavailabl e Reason for Visit * Appointment Request (Routine) - Closed Specialty Diagnoses / Procedures Referred By Cesilia moore Referred To Contact Otorhinolaryngology Referral ID Status Reason Start Date Expiration Date Visits Re quested Visits Authorized [id number] Closed 03/31/2023 03/30/2024 1 1 Encounter Details Date Type Department Care Team (Latest Contact Info) Description 04/15/2023 8:30 AM CHEMICAL TREATMENT PLANT TECHNICIAN Diagnostic Department of Otorhinolaryngology in [place], [place] [address] [place] [address] Wendy Reynolds Au.D., C.C.C.-A [address] [place] [phone] Loss Hearing Sensorineural Bilateral (Primary Dx) Social [...] with amplification. Hearing Aid Information Left Right Pet Sitter ReSound ReSound Model Nexia 760S Nexia 760S Style RITE (bwfqrdog-wt-owq-ear) RITE (xnkfzanx-vz-ids-ear) Serial Number [id number] Battery Size Royal Ion Rechargeable Royal Ion Rechargeable Coupling 2M glass maker,small open dome 2M glass maker,small open dome Warranty Date 05/02/2026 05/02/2026 Trial Period End Date 06/02/2023 Phone Connectivity Not connected Accessory Information Serial Number End of Warranty Date Wet Room Supervisor [id number] 05/02/2026 Aided real-ear probe microphone measures showed [...] Bilateral Appointment assisted by Destiny Zhao, audiology occupational health and safety adviser ICAL TREATMENT PLANT TECHNICIAN documented in this encounter Plan of Treatment Not on file documented as of this encounter Visit Diagnoses Diagnosis Loss Hearing Sensorineural Bilateral- Primary documented in this encounter
--- OUTSIDE RECORDS SUMMARY | 2023-07-22 08:45 | XMS_ITS | Referral Summary ---
Author Name Unknown Organization [facility] Address [address] [place] [address] Care Team Providers Care Manager Of Training Name Role Phone Unavailable Primary Care Provider Unavailabl e Source Comments Patient records contain information from all sites at [facility]. For routine questions regarding patient records, call [phone] during business hours, M-F 8:00 AM - 5:00 PM Central Time. Record requests for emergency care only can be directed to [phone] at any time.[facility] Encounters Date Type Department Care Team Description 05/13/2023 9:30 AM FAST FOOD DELIVERY DRIVER Diagnostic Department of Otorhinolaryngology in [place], [place] [address] [place] [address] Wendy Reynolds Au.D., C.C.C.-A Otosclerosis Bilateral (Primary Dx) from Last 3 Months Allergies Active Allergy Reactions Criticality Noted Date Comments Penicillins Rash,Hives (Reselect Reaction) 07/15/2016 pt states unknown/ childhood allergy Medications Medication Sig Dispensed Refills Start Date End Date Status amphetamine-dextroam phetamine (ADDERALL XR) 20 mg 24 hr capsule Take 40 mg by mouth. 04/28/2020 Active sertraline (ZOLOFT) 50 mg tablet Take 50 mg by mouth daily. 08/14/2020 Active oxyCODONE (Roxicodone) 5 mg immediate release tabletIndications:Ac [place] Pain Exception Take 1 tablet (5 mg total) by mouth every 4 (four) hours as needed for moderate pain or score 4-6 of 10 Indication: Acute Pain Exception. 5 tablet 09/10/2020 Active ibuprofen (ADVIL,MOTRIN) 200 mg tablet Take 3 tablets (600 mg total) by mouth every 6 (six) hours as needed for pain. 09/10/2020 Active sennosides-docusate sodium (Senna with Docusate Sodium) 8.6-50 mg per tablet Take 1 tablet by mouth 2 (two) times a day. Take until no longer using narcotic and bowel movements are normal. 09/10/2020 Active acetaminophen (TYLENOL) 500 mg capsule Take 2 capsules (1,000 mg total) by mouth every 6 (six) hours as needed for pain. 09/10/2020 Active ofloxacin (FLOXIN) 0.3 % otic solution Administer 4 drops into the right ear 2 (two) times a day. For only the week leading up to your follow up appointment. 5 mL 09/10/2020 Active Active Problems Problem Noted Date Diagnosed Date Otosclerosis Bilateral 07/18/2020 Overview: Added automatically from request for surgery [id number] Social History Tobacco Use Types Packs/Day Years [...] 09/10/2020 8:39 AM CDT Plan of Treatment Not on file Medical Devices Implanted Type Area Systems Engineering Manager Device Identifier Shelf Expiration Date Model / Serial / Lot Stapes Piston Eclipse 0.5mm X 4.00mm - [employer]no [id number] Implanted:Qty: 1 on 07/30/2016 Ear Implant Other/Legacy - See Implant Description [employer] Description:Device Manufactu rer - [employer]. Body Location - Other. Left. Device Status Text - AUD [id number]. Stapes Piston Eclipse 0.5mm X 4.25mm - [id number] Implanted:Qty: 1 on 07/30/2016 Ear Implant Other/Legacy - See Implant Description [employer] Description:Device Manufactu rer - [employer]. Body Location - Other. Left. Device Status Text - AUD [id number]. Abtmnt Hd Ecl Ossclr 0.5x4.0 - [id number] Implanted:Qty: 1 on 09/10/2020 by Victorino Sctot M.D. at [facility] Ear Implant [employer] 05/25/2022 [id number] / [id number] Procedures Procedure Name Priority Date/Time Associated Diagnosis Comments EXTI COMPREHENSIVE METABOLIC PANEL, S/P Routine 03/09/2021 3:32 AM FAST FOOD DELIVERY DRIVER from Last 3 Months or Most Recently Relevant to Health Maintenance
--- OUTSIDE RECORDS SUMMARY | 2023-07-22 08:45 | XMS_ITS | Clinical Summary ---
Author Name Unknown Organization [facility] Address [address] [place] [address] Care Team Providers Care Scudding Inspector Name Role Phone Unavailable Primary Care Provider Unavailabl e Source Comments Patient records contain information from all sites at [facility]. For routine questions regarding patient records, call [phone] during business hours, M-F 8:00 AM - 5:00 PM Central Time. Record requests for emergency care only can be directed to [phone] at any time.[facility] Allergies Active Allergy Reactions Criticality Noted Date [...] Overview: Added automatically from request for surgery [id number] Encounters Date Type Department Care Team Description 05/13/2023 9:30 AM COUNCILOR Diagnostic Department of Otorhinolaryngology in [place], [place] [address] [place] [address] Wendy Reynolds Au.D., C.C.C.-A Otosclerosis Bilateral (Primary Dx) from Last 3 Months Social [...] 09/10/2020 8:39 AM CDT Plan of Treatment Health Maintenance Due Date Last Done Comments CT Colonography 1967 Cervical Cancer Screening 1967 Colonoscopy 1967 FIT 1967 HIV Screening 1967 Hepatitis C Screening 1967 Lipid (Cholesterol) Screening 1967 Mammogram 1967 Hepatitis B Vaccines (1 of 3 - 19+ 3-dose series) 10/02/1986 DTaP,Tdap,and Td Vaccines (1 - Tdap) 08/24/1999 08/23/1999 Zoster Vaccines (1 of 2) 10/02/2017 Cologuard 05/06/2022 05/06/2019 Colorectal Cancer Screening 05/06/2022 COVID-19 Vaccine (3 - 2022-2 4 season) 2022 06/27/2020, 06/06/2020 Influenza Vaccine (#1) 2022 Depression Screening (Annual PHQ-2) 03/28/2023 Fasting Glucose for Diabetes Screening 03/09/2024 03/09/2021 Pneumococcal vaccine (0-64 years) Aged Out No longer eligible b ased on patient's age to complete this topic Medical Devices Implanted Type Area Mechanical Design Engineer Device Identifier Shelf Expiration Date Model / Serial / Lot Stapes Piston Eclipse 0.5mm X 4.00mm - Moreno [id number] Implanted:Qty: 1 on 07/30/2016 Ear Implant Other/Legacy - See Implant Description [employer] Description:Device Manufactu [facility]. Body Location - Other. Left. Device Status Text - AUD [id number]. Stapes Piston Eclipse 0.5mm X 4.25mm - [employer]no [id number] Implanted:Qty: 1 on 07/30/2016 Ear Implant Other/Legacy - See Implant Description [employer] Description:Device Manufactu [facility]. Body Location - Other. Left. Device Status Text - AUD [id number]. Abtmnt Hd Ecl Ossclr 0.5x4.0 - [id number] Implanted:Qty: 1 on 09/10/2020 by Victorino Scott M.D. at [facility] Ear Implant [employer] 05/25/2022 [id number] / / [id number] Procedures Procedure Name Priority Date/Time Associated Diagnosis Comments EXTI COMPREHENSIVE METABOLIC PANEL, S/P Routine 03/09/2021 3:32 AM COUNCILOR from Last 3 Months or Most Recently Relevant to Health Maintenance
--- OUTSIDE RECORDS SUMMARY | 2023-07-22 08:45 | XMS_ITS | Encounter Summary ---
Author Name Unknown Organization [facility] Address [address] [place] [address] Care Team Providers Care Captain Fishing Vessel Name Role Phone Unavailable Primary Care Provider Unavailabl e Encounter Details Date Type Department Care Team (Latest Contact Info) Description 05/13/2023 9:30 AM EVENTS SPECIALIST Diagnostic Department of Otorhinolaryngology in [place], [place] [address] [place] [address] Wendy Reynolds Au.D., C.C.C.-A [address] [place] [address] Otosclerosis Bilateral (Primary Dx) Social History Tobacco Use [...] Progress Notes * Destiny Zhao, AUD - 05/13/2023 9:30 AM CST SUBJECTIVE REFERRAL: Self CHIEF COMPLAINT/REASON FOR VISIT Hearing aid follow-up HISTORY 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 She had an updated audiogram on 03/31/2023. Her medical history is significant for Otosclerosis. Dr. Scott performed a stapedotomy on the right side 09/10/2020. Ms. Chatman was fit with the following amplification on 05/12/2023: Hearing Aid Information Left Right New Car Inspector ReSound ReSound Model Nexia 760S Nexia 760S Style RITE (ajiwavxi-km-eml-ear) RITE (vklxwifm-ma-jfj-ear) Serial Number [id number] Battery Size [place] Ion Rechargeable [place] Ion Rechargeable Coupling 2L shroudman,small open dome 2L shroudman,small open dome Warranty Date 05/02/2026 05/02/2026 Trial Period End Date 06/02/2023 Phone Connectivity Not connected Accessory Information Serial Number End of Warranty Date Retail Pharmacy Merchandiser [id number] 05/02/2026 Today, Ms. Chatman reports good use of both devices. She reports that she is wearing each device throughout the day. She does increase the overall volume each day for each device. Ms. Chatman has concerns for retention of both devices. She reports that throughout her day they work out of her ear and she fears they will fall out. She continually is pressing both devices into her ear canals. OBJECTIVE Increased overall gain in both devices 3 steps. Ms. Chatman reported better sound quality and loudness. She was satisfied with the adjustments made. Changed the shroudman length for both devices for shorter lengths. We changed the domes from a smallopen to a medium open dome. This allowed for better retention of both device. Ms. Chatman was satisfied with the changes made. Adjustments to the coupling are as follows: Hearing Aid Information Left Right New Car Inspector ReSound ReSound Model Nexia 760S Nexia 760S Style RITE (okqixmjk-rc-xpr-ear) RITE (vrpejlae-su-qtj-ear) Serial Number [id number] Battery Size [place] Ion Rechargeable [place] Ion Rechargeable Coupling 0L shroudman,medium open dome 1L shroudman,medium open dome Warranty Date 05/02/2026 05/02/2026 Trial Period End Date 06/02/2023 Phone Connectivity Not connected Accessory Information Serial Number End of Warranty Date Retail Pharmacy Merchandiser [id number] 05/02/2026 ASSESSMENT/PLAN Following hearing aid cleaning, listening check indicates good sound quality and loudness. The following components were replaced during cleaning: wax guards, domes Follow-up as scheduled. Call our clinic with any questions or concerns which may arise. #1 Otosclerosis Bilateral Appointment assisted by Destiny Zhao, audiology conventions reservationist TS SPECIALIST documented in this encounter Plan of Treatment Not on file documented as of this encounter Visit Diagnoses Diagnosis Otosclerosis Bilateral- Primary documented in this encounter
--- OUTSIDE RECORDS SUMMARY | 2023-07-22 08:45 | XMS_ITS ---
Author Name Unknown Organization [facility] Address [address] [place] [address] Care Team Providers Care Grips Name Role Phone Unavailable Unavailable Unavailable Surgery Details Not on file Complications Check Surgery Details section. Procedure Estimated Blood Loss Check Surgery Details section. Procedure Findings Check Surgery Details section. Procedure Specimens Taken Check Surgery Details section.
--- OUTSIDE RECORDS SUMMARY | 2023-07-22 08:46 | XMS_ITS | Clinical Summary ---
Author Name Unknown Organization [place] Address [address] [place] [address] Care Team Providers Care Obstetrics Gyn Name Role Phone [facility], [facility] Primary Care Provider Allergies Active Allergy Reactions [...] Comments Blood Pressure 130/93 03/09/2021 6:28 AM ROLLING MACHINE OPERATOR Pulse 74 03/09/2021 6:28 AM ROLLING MACHINE OPERATOR Temperature 36.1 ??C (96.9 ??F) 03/09/2021 3:18 AM CS T Respiratory Rate 16 03/09/2021 3:18 AM ROLLING MACHINE OPERATOR Oxygen Saturation 96% 03/09/2021 6:29 AM ROLLING MACHINE OPERATOR Inhaled Oxygen Concentration - - Weight 58.1 kg (128 lb) 07/02/2013 9:46 AM CDT Height 161.3 cm (5' 3.5) 07/02/2013 9:46 AM CDT Body Mass Index 22.32 07/02/2013 9:46 AM CDT Plan of Treatment Health Maintenance Due Date Last Done Comments ADVANCE CARE PLANNING 1965 ANNUAL REVIEW OF HM ORDERS 1967 CT COLONOGRAPHY 1967 FIT 1967 FLEX SIG 1967 sDNA (Cologuard) 1967 COLONOSCOPY 10/02/1977 COLORECTAL CANCER SCREENING 10/02/1977 HIV SCREENING 10/02/1982 HEPATITIS C SCREENING 10/02/1985 HEPATITIS B IMMUNIZATION (1 of 3 - 19+ 3-dose series) 10/02/1986 DTAP/TDAP/TD IMMUNIZATION (1 - Tdap) 08/24/1999 08/23/1999 MAMMO SCREENING 08/09/2009 08/09/2008, 10/2006, 07/29/2005, Additional history exists PAP 04/30/2012 04/30/2010, 04/29, 05/24/2001 LIPID 05/01/2013 05/01/2012, 04/29, 06/17/2005, Additional history exists YEARLY PREVENTIVE VISIT 05/01/2013 05/01/19 13, 04/30/2010, 05/22/2007, Additional history exists ZOSTER IMMUNIZATION (1 of 2) 10/02/2017 COVID-19 Vaccine ( season) 2022 06/27/2020, 06/06/2020 INFLUENZA VACCINE (#1) 2022 PHQ-2 (once per calendar year) 2023 GLUCOSE 03/09/2024 03/09/2021, 02/06/2012, 06/09/2009, Additional history exists HPV IMMUNIZATION Aged Out No longer e [...] on patient's age to complete this topic Procedures Procedure Name Priority Date/Time Associated Diagnosis Comments COMPREHENSIVE METABOLIC PANEL STAT 03/09/2021 3:32 AM ROLLING MACHINE OPERATOR LIPID REFLEX TO DIRECT LDL PANEL Routine 05/01/2012 9:30 AM ROLLING MACHINE OPERATOR Routine general medical examination at a health care facility PAP IMAGED THIN LAYER SCREEN Routine 04/30/2010 12:00 AM ROLLING MACHINE OPERATOR Routine general medical examination at a [facility] care facility HC MAMMOGRAM, SCREENING BILATERAL Routine 08/09/2008 Breast Cancer Screening from Last 3 Months or Most Recently Relevant to Health Maintenance Results * (ABNORMAL) Comprehensive metabolic panel (03/09/2021 3:32 AM ROLLING MACHINE OPERATOR) Sodium 139 133 - 144 mmol/L 03/09/2021 3:56 AM ROLLING MACHINE OPERATOR [facility] Potassium 3.6 3.4 - 5.3 mmol/L 03/09/2021 3:56 AM ROLLING MACHINE OPERATOR [facility] Chloride 107 94 - 109 mmol/L 03/09/2021 3:56 AM ROLLING MACHINE OPERATOR [facility] Carbon Dioxide (CO2) 27 20 - 32 mmol/L 03/09/2021 3:56 AM ROLLING MACHINE OPERATOR [facility] Anion Gap 5 3 - 14 mmol/L 03/09/2021 3:56 AM ROLLING MACHINE OPERATOR [facility] Urea Nitrogen 15 7 - 30 mg/dL 03/09/2021 3:56 AM ROLLING MACHINE OPERATOR [facility] Creatinine 0.77 0.52 - 1.04 mg/dL 03/09/2021 3:56 AM ROLLING MACHINE OPERATOR LABORATORY Calcium 9.4 8.5 - 10.1 mg/dL 03/09/2021 3:56 AM ROLLING MACHINE OPERATOR LABORATORY Glucose 133(H) 70 - 99 mg/dL 03/09/2021 3:56 AM ROLLING MACHINE OPERATOR LABORATORY Alkaline Phosphatase 129 40 - 150 U/L 03/09/2021 3:56 AM ROLLING MACHINE OPERATOR LABORATORY AST 22 0 - 45 U/L 03/09/2021 3:56 AM ROLLING MACHINE OPERATOR LABORATORY ALT 37 0 - 50 U/L 03/09/2021 3:56 AM ROLLING MACHINE OPERATOR LABORATORY Protein Total 7.3 6.8 - 8.8 g/dL 03/09/2021 3:56 AM ROLLING MACHINE OPERATOR LABORATORY Albumin 3.6 3.4 - 5.0 g/dL 03/09/2021 3:56 AM ROLLING MACHINE OPERATOR LABORATORY Bilirubin Total 0.3 0.2 - 1.3 mg/dL 03/09/2021 3:56 AM ROLLING MACHINE OPERATOR LABORATORY GFR Estimate 88 >60 mL/min/1.7 3m2 03/09/2021 3:56 AM [facility] Comment:As of October 05, 2020, eGFR is calculated by the CKD-EPI creatinine equation, without race adjustment. eGFR can be influenced by muscle mass, exercise, and diet. The reported eGFR is an estimation only and is only applicable if the renal function is stable. Blood STRUCTURE OF RIGHT UPPER LIMB / Unknown Venipuncture / Unknown 03/09/2021 3:32 AM ROLLING MACHINE OPERATOR 03/09/2021 3:36 AM ROLLING MACHINE OPERATOR Itzel Mancia MD LAB - BLOOD [facility] [address] Lab (1st floor, no room number) [place] [address], [facility] [phone] * (ABNORMAL) Lipid panel reflex to direct LDL (05/01/2012 9:30 AM ROLLING MACHINE OPERATOR) [facility] Cholesterol 206(H) 0 - 200 mg/dL [facility] Comment: LDL Cholesterol is the primary guide to therapy. The NCEP recommends further evaluation of: patients with cholesterol greater than 200 mg/dL if additional risk factors are present, cholesterol greater than 240 mg/dL, triglycerides greater than 150 mg/dL, or HDL less than 40 mg/dL. Triglycerides 70 0 - 150 mg/dL [facility] HDL Cholesterol 60 50 - 110 mg/dL [facility] LDL Cholesterol Calculated 132(H) 0 - 129 mg/dL [facility] Comment: LDL Cholesterol is the primary guide to therapy: LDL-cholesterol goal in high risk patients is <100 mg/dL and in very high risk patients is <70 mg/dL. VLDL-Cholesterol 14 0 - 30 mg/dL [facility] Cholesterol/HDL Ratio 3.4 0.0 - 5.0 [facility] Blood specimen (specimen) 05/01/2012 9:30 AM ROLLING MACHINE OPERATOR 05/01/2012 9:32 AM ROLLING MACHINE OPERATOR Rogerio Wild MD LAB - BLOOD ORD ERABLES [facility] [address] [place] [address] * PAP imaged thin layer screen (04/30/2010 12:00 AM ROLLING MACHINE OPERATOR) PAP OTHER-NIL EM>40 COPATH Copath Report Patient Name: GLADYS FUENTES MR#: [id number] Specimen #: [id number] Collected: 04/30/2010 Received: 05/04/2010 Reported: 05/05/2010 15:44 Ordering Phy(s): ROGERIO WILD SPECIMEN/STAIN PROCESS: Pap imaged thin layer prep screening (Surepath, FocalPoint with guided screening) ? Pap-Cyto x 1, Reflex HPV x 1 SOURCE: Cervical, endocervical Pap imaged thin layer prep screening (Surepath, FocalPoint with guided screening) SPECIMEN ADEQUACY: Satisfactory for evaluation. -Transformation zone component present. -LMP not provided on specimen requisition. CYTOLOGIC INTERPRETATION: Other: Negative for Intraepithelial Lesion or Malignancy, See interpretation/Res ult. ? -Endometrial cells present. -Endometrial cells after age 40, particularly out of phase or after menopause, may be associated with benign endometrium, hormonal alterations, and less commonly, endometrial abnormalities or lesions. Electronically signed out by: Juanito Claudio M.D. Processed and screened at [facility] CLINICAL HISTORY: Previous normal pap Date of Last Pap: 05/22/07, Papanicolaou Test Limitations: ??Cervical cytology is a screening test with limited sensitivity; regular screening is critical for cancer prevention; Pap tests are primarily effective for the diagnosis/preventi on of squamous cell carcinoma, not adenocarcinomas or other cancers. TESTING LAB LOCATION: [address] ??[id number] COLLECTION SITE: Client: ??[facility] Location: [facility] Cytologic material (specimen) 04/30/2010 05/04/2010 11:10 AM ROLLING MACHINE OPERATOR Rogerio Wild MD LAB - OPTIME CL INICAL SPECIMEN COPATH * MAMMOGRAM, SCREENING (08/09/2008) MAMMOGRAM Anatomical Region Laterality Modality Other Impressions 08/09/2008 RADIOLOGIST'S INTERPRETATION: Breast parenchyma: ??heterogeneously dense IMAGING IMPRESSION: (CATEGORY-1) NEGATIVE Adalid Newman M.D. D/T: ??08/14/08 Allyssa Dela Cruz PA-C SPECIAL IMAGING S TUDIES from Last 3 Months or Most Recently Relevant to Health Maintenance Care Teams Obstetrics Gyn Relationship Specialty Start Date End Date Clinic, [address] [address] PCP - General 03/09/21
--- OUTSIDE RECORDS SUMMARY | 2023-07-22 08:46 | XMS_ITS | Clinical Summary ---
Author Name Unknown Organization [facility] Address [address] [place] [address] Care Team Providers Care Air Twister Winder Name Role Phone Unavailable Primary Care Provider Unavailabl e Source Comments You are receiving this document as you are listed as the primary care provider,follow-up provider, or the patient has been referred to you for consultation.This is in compliance with the Medicare and[facility] Hospital[facility] EHR Incentive Program,which states Providers who transition their patient to another setting of careor provider of care or refers their patient to another provider of care shouldprovide summary care record for each transition of care or referral. [facility] Allergies Active Allergy Reactions Criticality Noted Date Comments Penicillins Rash 10/17/2017 Medications Medication Sig Dispensed Refills Start Date End Date Status escitalopram oxalate (LEXAPRO) 20 MG tablet Take 20 mg by mouth daily. Active amphetamine-dextroamphe tamine (ADDERALL XR) 20 MG 24 hour release capsule Take 40 mg by mouth every morning. 04/28/2020 Active gabapentin (NEURONTIN) 300 MG capsule 04/04/2020 Active Active Problems No known active [...] AM CDT Pulse 84 05/10/2020 10:05 AM ORE TESTER Temperature - - Respiratory Rate - - Oxygen Saturation - - Inhaled Oxygen Concentration - - Weight - - Height - - Body Mass Index - - Plan of Treatment Health Maintenance Due Date Last Done Comments Cervical Cancer Screening Due 1965 Colon Cancer Screening Plan Due 1967 Hep C Screening (Preventive Services) 1967 Mammogram 1967 HIV Screening (Preventive Services) 1983 Adult Preventive Visit 10/02/1985 DTaP/Tdap/Td (1 - Tdap) 10/02/1986 HepB (1) 10/02/1986 Cholesterol 10/02/2012 Zoster/Shingles (1 of 2) 10/02/2017 COVID-19 Vaccine (3 - 2022-2 4 season) 2022 06/27/2020, 06/06/2020 Influenza (#1) 2022 HepA Aged Out No [...]
--- OUTSIDE RECORDS SUMMARY | 2023-07-22 08:46 | XMS_ITS | Encounter Summary ---
Author Name Unknown Organization [facility] Address [address] [place] [address] Care Team Providers Care Stave Hewer Name Role Phone Danii Wild MD Primary Care Provider [facility] Primary Care Provider Encounter Details Date Type Department Care Team (Late st Contact Info) Description 06/28/2020 [facility] Rachana Beck MD [address] [facility] [place] [address] Social History Tobacco Use Types Packs/Day Years [...] on filedocumented in this encounter Care Teams Stave Hewer Relationship Specialty Start Date End Date Danii Wild MD PCP - General Family Practice 07/21/11 03/08/[address] [address] PCP - General 03/09/21 documented as of this encounter
--- OUTSIDE RECORDS SUMMARY | 2023-07-22 08:46 | XMS_ITS | Referral Summary ---
Author Name Unknown Organization [facility] Address [address] [place] [address] Care Team Providers Care Grades 9 Thru 12 Visiting Teacher Name Role Phone [facility], [facility] Primary Care Provider Allergies Active Allergy [...] Comments Blood Pressure 130/93 03/09/2021 6:28 AM DERRICK BOAT LEVERMAN Pulse 74 03/09/2021 6:28 AM DERRICK BOAT LEVERMAN Temperature 36.1 ??C (96.9 ??F) 03/09/2021 3:18 AM CS T Respiratory Rate 16 03/09/2021 3:18 AM DERRICK BOAT LEVERMAN Oxygen Saturation 96% 03/09/2021 6:29 AM DERRICK BOAT LEVERMAN Inhaled Oxygen Concentration - - Weight 58.1 kg (128 lb) 07/02/2013 9:46 AM CDT Height 161.3 cm (5' 3.5) 07/02/2013 9:46 AM CDT Body Mass Index 22.32 07/02/2013 9:46 AM CDT Plan of Treatment Not on file Procedures Procedure Name Priority Date/Time Associated Diagnosis Comments COMPREHENSIVE METABOLIC PANEL STAT 03/09/2021 3:32 AM DERRICK BOAT LEVERMAN LIPID REFLEX TO DIRECT LDL PANEL Routine 05/01/2012 9:30 AM DERRICK BOAT LEVERMAN Routine general medical examination at a [facility] care facility PAP IMAGED THIN LAYER SCREEN Routine 04/30/2010 12:00 AM DERRICK BOAT LEVERMAN Routine general medical examination at a [facility] facility HC MAMMOGRAM, SCREENING BILATERAL Routine 08/09/2008 Breast Cancer Screening from Last 3 Months or Most Recently Relevant to Health Maintenance Results * (ABNORMAL) Comprehensive metabolic panel (03/09/2021 3:32 AM DERRICK BOAT LEVERMAN) Sodium 139 133 - 144 mmol/L 03/09/2021 3:[address] [facility] Potassium 3.6 3.4 - 5.3 mmol/L 03/09/2021 3:56 AM DERRICK BOAT LEVERMAN [facility] Chloride 107 94 - 109 mmol/L 03/09/2021 3:[address] [facility] Carbon Dioxide (CO2) 27 20 - 32 mmol/L 03/09/2021 3:56 AM [facility] Anion Gap 5 3 - 14 mmol/L 03/09/2021 3:56 AM DERR[facility]AT L[facility] Urea Nitrogen 15 7 - 30 mg/dL 03/09/2021 3:[address] [facility] Creatinine 0.77 0.52 - 1.04 mg/dL 03/09/2021 3:[address] [facility] Calcium 9.4 8.5 - 10.1 mg/dL 03/09/2021 3:56 AM [facility] Glucose 133(H) 70 - 99 mg/dL 03/09/2021 3:56 AM [facility] Alkaline Phosphatase 129 40 - 150 U/L 03/09/2021 3:56 AM [facility] AST 22 0 - 45 U/L 03/09/2021 3:56 AM [facility] ALT 37 0 - 50 U/L 03/09/2021 3:56 AM [facility] Protein Total 7.3 6.8 - 8.8 g/dL 03/09/2021 3:56 AM [facility]ERR[facility] Albumin 3.6 3.4 - 5.0 g/dL 03/09/2021 3:56 AM [facility]ERR[facility] Bilirubin Total 0.3 0.2 - 1.3 mg/dL 03/09/2021 3:56 AM DERRICK BOAT L[facility] GFR Estimate 88 >60 mL/min/1.7 3m2 03/09/2021 3:[address] [facility] Comment:As of October 05, 2020, eGFR is calculated by the CKD-EPI creatinine equation, without race adjustment. eGFR can be influenced by muscle mass, exercise, and diet. The reported eGFR is an estimation only and is only applicable if the renal function is stable. Blood STRUCTURE OF RIGHT UPPER LIMB / Unknown Venipuncture / Unknown 03/09/2021 3:32 AM DERRICK BOAT LEVERMAN 03/09/2021 3:36 AM DERRICK BOAT LEVERMAN Itzel Mancia MD LAB - BLOOD [facility] Organization Address City/State/ZIP Co de Phone Number LABORATORY [facility] [address] Lab (1st floor, no room number) [place] [address], [facility] [phone] * (ABNORMAL) Lipid panel reflex to direct LDL (05/01/2012 9:30 AM DERRICK BOAT LEVERMAN) [facility] Signature Cholesterol 206(H) 0 - 200 mg/dL [facility] Comment: LDL Cholesterol is the primary guide to therapy. The NCEP recommends further evaluation of: patients with cholesterol greater than 200 mg/dL if additional risk factors are present, cholesterol greater than 240 mg/dL, triglycerides greater than 150 mg/dL, or HDL less than 40 mg/dL. Triglycerides 70 0 - 150 mg/dL [facility] HDL Cholesterol 60 50 - 110 mg/dL [facility] LDL Cholesterol Calculated 132(H) 0 - 129 mg/dL [facility] Comment: LDL Cholesterol is the primary guide to therapy: LDL-cholesterol goal in high risk patients is <100 mg/dL and in very high risk patients is <70 mg/dL. VLDL-Cholesterol 14 0 - 30 mg/dL [facility] Cholesterol/HDL Ratio 3.4 0.0 - 5.0 [facility] Blood specimen (specimen) 05/01/2012 9:30 AM DERRICK BOAT LEVERMAN 05/01/2012 9:32 AM DERRICK BOAT LEVERMAN Rogerio Wild MD LAB - BLOOD ORD ERABLES [facility] [address] [place] [address] * PAP imaged thin layer screen (04/30/2010 12:00 AM DERRICK BOAT LEVERMAN) PAP OTHER-NIL EM>40 COPATH Copath Report Patient Name: GLADYS FUENTES MR#: [id number] Specimen #: [id number] Collected: 04/30/2010 Received: 05/04/2010 Reported: 05/05/2010 15:44 [...] Juanito Claudio M.D. Processed and screened at [facility] CLINICAL HISTORY: Previous normal pap Date of Last Pap: 05/22/07, Papanicolaou Test Limitations: ??Cervical cytology is a screening test with limited sensitivity; regular screening is critical for cancer prevention; Pap tests are primarily effective for the diagnosis/preventi on of squamous cell carcinoma, not adenocarcinomas or other cancers. TESTING LAB LOCATION: [facility] [place] [facility] [address], [place] ??[id number] COLLECTION SITE: Client: ??[facility] Location: [facility] (R) COPATH Cytologic material (specimen) 04/30/2010 05/04/2010 11:10 AM DERRICK BOAT LEVERMAN Rogerio Wild MD LAB - OPTIME CL INICAL SPECIMEN COPATH * MAMMOGRAM, SCREENING (08/09/2008) MAMMOGRAM Anatomical Region Laterality Modality Other Impressions 08/09/2008 RADIOLOGIST'S INTERPRETATION: Breast parenchyma: ??heterogeneously dense IMAGING IMPRESSION: (CATEGORY-1) NEGATIVE Adalid Newman M.D. D/T: ??08/14/08 Allyssa Dela Cruz PA-C SPECIAL IMAGING S TUDIES from Last 3 Months or Most Recently Relevant to Health Maintenance Care Teams Grades 9 Thru 12 Visiting Teacher Relationship Specialty Start Date End Date [facility], [address] [address] PCP - General 03/09/21
--- OUTSIDE RECORDS SUMMARY | 2023-07-22 08:46 | XMS_ITS | Encounter Summary ---
Author Name Unknown Organization [facility] Address [address] [place] [address] Care Team Providers Care Shoe Trimmer Name Role Phone [facility] Primary Care Provider Encounter Details Date Type [...] COVID-19? No / Unsure 03/09/2021 3:14 AM WAX ROOM SUPERVISOR documented as of this encounter Plan of Treatment Not on file documented as of this encounter Visit Diagnoses Not on filedocumented in this encounter Care Teams Shoe Trimmer Relationship Specialty Start Date End Date [address] [id number] PCP - General 03/09/21 documented as of this encounter
--- NOTE | 2023-07-22 09:15 | MM_ITS ---
Patient: GLADYS FUENTES Facility:?[facility] RIS Patient ID:?[id number] Site Patient ID:?[id number]. Site :?1965 Study:?XRay-Breast Bilateral 3D W/CAD-07/22/2023 9:25:38 AM Ordering Physician:Cristopher Final Report: BILATERAL SCREENING MAMMOGRAM WITH COMPUTER-AIDED DETECTION AND TOMOSYNTHESIS TECHNIQUE: CC and MLO views were obtained. These mammographic images have been obtained using full-field digital technique. These mammographic images were interpreted with the benefit of computer-aided detection. Breast Tomosynthesis was used in this interpretation. COMPARISON FILM: 12/06/14, 08/09/08, 12/03/06. FINDINGS: The breasts are heterogeneously dense, which may obscure small masses. IMPRESSION: There is no radiographic evidence for malignancy. ASSESSMENT: BI-RADS Category 2: Benign RECOMMENDATION: Routine screening mammogram in 1 year. A lay language report of this examination will be provided to the patient. Mg Calvillo M.D. Diagnostic Radiologist [email or web address] DSM/sp R& Transcribed: 3:11 p.m. SP/Dictated by: Mg Calvillo MD @ 07/25/2023 11:23:00 AM Signed by:?Mg Calvillo MD @07/25/2023 3:21:04 PM (Electronic Signature)
== END 2023-07-22 08:44 | disposition home or self-care (01) ==
LOC: MAMMO 08:44
PROVIDERS: PCP Physician Assistant Medical; Visit Provider Physician Assistant Medical
DX: Z12.31 Encounter for screening mammogram for malignant neoplasm of breast (principal); R92.2 Inconclusive mammogram
CPT/HCPCS: 77063; 77067

== ENCOUNTER 2024-07-24 07:30 | Outpatient (CLI) | payer OTHER, SELFPAY | END 2024-07-24 07:31 | disposition home or self-care (01) | LOC: NFLDREF 07-25 00:54 | PROVIDERS: PCP Physician Assistant Medical; Referring Provider Physician Assistant Medical; Visit Provider Physician Assistant Medical | DX: Z00.01 Encounter for general adult medical examination with abnormal findings (principal); E78.5 Hyperlipidemia, unspecified; E55.9 Vitamin D deficiency, unspecified; F41.8 Other specified anxiety disorders | CPT/HCPCS: 80048; 80061; 82306; 84443 ==